=== PATIENT | female | born 1955 | race Caucasian/White ===

== ENCOUNTER 2018-03-26 05:45 | Inpatient (IN) | payer OTHER ==
[~2018-03-26] VITALS: Ht 165.1 cm; Wt 41.7 kg
--- NOTE | 2018-03-26 05:45 | NUR ---
PT HANNA ALS. TAKEN TO BED 10
--- NOTE | 2018-03-26 05:45 | NUR ---
Dr. Wilson evaluating patient at bedside.
[2018-03-26 05:50] VITALS: BP 110/71
--- NOTE | 2018-03-26 05:50 | NUR ---
62/F BIBA FROM HOME FOR SOB X4 HRS. PT STATED SHE STARTED FEELING SOB AT 0200 DESPITE ALBUTEROL INHALER. PT WAS GIVEN ALBUTEROL AND ATROVENT BREATHING TX AND CPAP ON ROUTE. PT ARRIVES SPO2 100% ON BIPAP, PT AOX4, GCS 15, RR 26 EVEN, MODERATELY LABORED WITH ACCESSORY MUSCLE USE. LUNG SOUNDS WHEEZE BL. PT DENIES FEVER, CP OR ANY PAIN. PLACED ON MONITOR, RT AT BEDSIDE, ER MD AT BEDSIDE HX CA (2012), COPD (1/2PPD SMOKER), ASTHMA, RECENT BRONCHITIS AND SINUSITIS
[2018-03-26] MEDS ORDERED: IPRATROPIUM 0.02% 0.5 MG/2.5 ML NEBU INH ONE (05:55)
[2018-03-26] MEDS ORDERED: methylPREDNISolone SS 125 MG in WATER STERILE 2 ML IV ONE (05:55)
[2018-03-26] MEDS ORDERED: ALBUTEROL 0.083% 2.5 MG/3 ML NEBU INH ONE (05:55)
[2018-03-26] MEDS ORDERED: methylPREDNISolone SS 125 MG/2 ML VIAL ONE (06:00)
[2018-03-26 06:20] LABS: BASOPHILS % (AUTO) 0.4 % (0.0-2.0); EOSINOPHILS # (AUTO) 0.1 K/uL (0-0.4); EOSINOPHILS % (AUTO) 1.8 % (0.0-4.0); HEMATOCRIT 43.8 % (36-48); HEMOGLOBIN 14.5 g/dL (12.0-16.0); LYMPHOCYTES # (AUTO) 1.1 K/uL (2.5-16.5); LYMPHOCYTES % (AUTO) 19.3 % (20.5-51.1); MEAN CORPUSCULAR HEMOGLOBIN 31 pg (27-31); MEAN CORPUSCULAR HGB CONC 33 g/dL (33-37); MONOCYTES # (AUTO) 0.4 K/uL (0.8-1.0); MONOCYTES % (AUTO) 7.5 % (1.7-9.3); NEUTROPHILS # (AUTO) 4.2 K/uL (1.8-7.7); PLATELET COUNT (AUTO) 207 K/uL (140-450); RED BLOOD CELL COUNT(AUTO) 4.76 MIL/uL (4.20-5.40); WHITE BLOOD COUNT (AUTO) 5.9 K/uL (4.8-10.8)
[2018-03-26 06:39] LABS: ALBUMIN 4.1 g/dL (3.4-5.0); ANION GAP 9.8 (8-16); CARBON DIOXIDE 30.1 mmol/L (21-32); CREATININE 0.9 mg/dL (0.6-1.3); POTASSIUM 3.9 mmol/L (3.5-5.1); TOTAL BILIRUBIN 0.5 mg/dL (0.0-1.0)
[2018-03-26] MEDS ORDERED: AZITHROMYCIN 1,000 MG in DEXTROSE 5% 500 ML IV ONE (07:15)
[2018-03-26] MEDS ORDERED: NACL 0.9% IV ONE (07:15)
[2018-03-26] MEDS ORDERED: LEVOFLOXACIN 750 MG/D5W PREMIX 150 ML IV ONE (07:15)
--- NOTE | 2018-03-26 07:22 | NUR ---
Pt report given to [facility]. Transfer of care at this time.
--- NOTE | 2018-03-26 07:38 | NUR ---
PT. RESTING COMFORTABLY IN BED, SAFETY PRECAUTIONS IN PLACE, HOB ELEVATED. VSS AT THIS TIME. RR EVEN AND UNLABORED. IV PATENT 10CC SALINE FLUSH NO REDNESS OR SWELLING NOTED AND NO PAIN AT THIS TIME. WILL CONTINUE TO MONITOR.
[2018-03-26] MEDS ORDERED: ALBUTEROL SULFATE/IPRATROPIU 3 ML SOL IH ONE (07:45)
[2018-03-26] MEDS ORDERED: HYDROcodone/APAP 5/325 MG 1 TAB TAB PO PRN (08:00)
[2018-03-26] MEDS ORDERED: ONDANSETRON 4 MG/2 ML VIAL IVP PRN (08:00)
[2018-03-26] MEDS ORDERED: ACETAMINOPHEN 325 MG TAB PO PRN (08:00)
[2018-03-26 08:45] VITALS: BP 111/66
--- NOTE | 2018-03-26 08:45 | NUR ---
RECEIVED BEDSIDE REPORT FROM KENDY ARAYA. PT STABLE, AWAKE, AND ALERT. PT AMBULATES. NO SIGNS OF DISTRESS NOTED. DENIES PAIN. NO REDNESS, SWELLING, OR INFLAMMATION NOTED ON IV SITE. BED IN LOW POSITION. CALL LIGHT WITHIN REACH. SAFETY MEASURES IN PLACE. PLAN OF CARE REVIEWED.
--- NOTE | 2018-03-26 08:45 | NUR ---
Patient will be admitted to care of DR. GARZA. Admited to TELE . Will go to room 111A. Belongings list completed. Report to KENDY SALAZAR.
--- NOTE | 2018-03-26 08:58 | NUR ---
TRANSFERRED PT TO TELE RM 111 A ON 2LPM NC UPON ARIVAL PLACED PT ON BIPAP WITH SETTINGS CHARTED BREATH SOUNDS [PRESENT BILAT PT CARLITOS BIPAP WELL AT THIS TIME DECREASED FI02 TO .28 SPO2 .98 WILL CONTINUE TO MONITOR PT ON BIPAP
--- NOTE | 2018-03-26 09:35 | NUR ---
DR. GARZA AT THE BEDSIDE.
--- NOTE | 2018-03-26 10:40 | NUR ---
REMOVEP PT FROM BIPAP AND PLACED ON 2LPM NC DR PRIETO AWARE PT AWAKE ALERT NO RESP DISTRESS ON 2LPM NC WILL CONTINUE TO MONITOR
[2018-03-26] MEDS: DOCUSATE SODIUM 100 MG GELCAP PO SCH (11:01)
--- NOTE | 2018-03-26 11:17 | NUR ---
ADMINISTERED SCHEDULED MEDICATIONS. PT TOLERATED WELL. NO OTHER NEEDS AT THIS TIME.
--- NOTE | 2018-03-26 12:30 | NUR ---
PAGED DR. GARZA TO REPORT LACTIC ACID.
--- NOTE | 2018-03-26 13:00 | NUR ---
PAGED DR. GARZA TO REPORT LACTIC ACID.
[2018-03-26] MEDS: methylPREDNISolone SS 40 MG/ML VIAL IVP SCH ×2 (13:10→20:35)
--- NOTE | 2018-03-26 13:15 | NUR ---
ADMINISTERED SCHEDULED MEDICATION. PT TOLERATED WELL. NO OTHER NEEDS AT THIS TIME.
--- NOTE | 2018-03-26 13:41 | NUR ---
REPORTED LACTIC ACID 2.[address] GARZA. RECEIVED ORDERS TO REPEAT LACTIC ACID IN 2HRS.
[2018-03-26] MEDS ORDERED: CETI10TA70 PO (15:09)
[2018-03-26] MEDS ORDERED: CHOL50005 PO (15:09)
[2018-03-26] MEDS ORDERED: FLO44 INH (15:09)
[2018-03-26] MEDS ORDERED: FLONAS NS (15:09)
[2018-03-26] MEDS ORDERED: ATRMDI IH (15:09)
[2018-03-26] MEDS ORDERED: ASPI-1718 PO (15:09)
[2018-03-26] MEDS ORDERED: ALBU0.0912 IH (15:09)
[2018-03-26] MEDS ORDERED: CEPH500C16 PO (15:09)
[2018-03-26] MEDS ORDERED: AMLO2.5T PO (15:09)
[2018-03-26] MEDS ORDERED: SODI45SP10 NS (15:09)
[2018-03-26 16:00] VITALS: BP 110/56
--- NOTE | 2018-03-26 16:20 | NUR ---
VITAL SIGNS TAKEN. PT STABLE, AWAKE, AND ALERT. NO SIGNS OF DISTRESS NOTED.
[2018-03-26] MEDS: ALBUTEROL SULFATE/IPRATROPIU 3 ML SOL IH PRN (18:47)
--- NOTE | 2018-03-26 19:27 | NUR ---
ENDORSED PT TO CREDENTIALING MANAGER NURSE FOR CONTINUITY OF CARE. PT STABLE, AWAKE, AND ALERT.
--- NOTE | 2018-03-26 19:28 | NUR ---
RECEIVED FROM AM RN IN BED AWAKE AND ALERT. ABLE TO VERBALIZE SIMPLE NEEDS. CALL LIGHT WITH IN REACH. NO SOB. DENIES PAIN AT THIS TIME. CARE PLANS FOR THE NIGHT DISCUSSED WITH HER. DX. OF COPD EXACERBATION. ROM X 4. AMBULATES WELL TO RESTROOM BY HERSELF PER AM RN. TELEMETRY MONITORING NSR.
[2018-03-26 20:00] VITALS: BP 122/71
[2018-03-26] MEDS ORDERED: ZOLPIDEM 5 MG TAB PO PRN (21:00)
--- NOTE | 2018-03-26 23:02 | NUR ---
BREATHING TREATMENT BEING ADMINISTERED BY RESPIRATORY THERAPIST AT THIS TIME. PT. ABLE TO VERBALIZE SIMPLE NEEDS IN POLISH. CALL LIGHT WITH IN REACH.
[2018-03-27] VITALS: BP 109/64
--- NOTE | 2018-03-27 00:46 | NUR ---
AWAKE AND AMBULATED TO RESTROOM WITH A CANE WELL. STANDBY ASSIST PROVIDED. PT. ABLE TO VERBALIZE NEEDS WELL IN UZBEK. DENIES APIN. TELEMETRY MONITORING.
--- NOTE | 2018-03-27 02:00 | NUR ---
SLEEPING. NO RESTLESSNESS. ON ROOM AIR AND 02 SAT 94%. CALL LIGHT WITH IN REACH. TELEMETRY MONITORING.
--- NOTE | 2018-03-27 02:55 | NUR ---
AWAKE AND REQUESTED FOR ANTI NAUSEA. WILL ADMINISTER REQUESTED. ABLE TO VERBALIZE NEEDS WELL.
[2018-03-27 04:31] VITALS: BP 112/60
--- NOTE | 2018-03-27 04:35 | NUR ---
SLEEPING WELL AT THIS TIME. NO RESTLESSNESS. IN ROOM AIR. TELEMETRY MONITORING.
[2018-03-27] MEDS: methylPREDNISolone SS 40 MG/ML VIAL IVP SCH (04:57)
[2018-03-27] MEDS: ALBUTEROL SULFATE/IPRATROPIU 3 ML SOL IH PRN (06:42)
--- NOTE | 2018-03-27 07:20 | NUR ---
RECEIVED BEDSIDE REPORT FROM KENDY DOYLE. PT STABLE, AWAKE, AND ALERT. NO SIGNS OF DISTRESS NOTED. DENIES PAIN OR SOB. NO REDNESS, SWELLING, OR INFLAMMATION NOTED ON IV SITE. BED IN LOW POSITION. CALL LIGHT WITHIN REACH. PLAN OF CARE REVIEWED.
--- NOTE | 2018-03-27 07:23 | NUR ---
BREATHING TREATMENT REQUESTED DONE. "I FEEL BETTER" . PT. ENDORSED AWAKE AND ALERT. NO COMPLAINTS DONE. TELEMETRY MONITORING. ABLE TO USE CALL LIGHT FOR HELP. PT. USES CANE IN AMBULATING. NOTED STABLE IN HER AMBULATION WITH CANE.
[2018-03-27 07:26] LABS: HEMATOCRIT 38.3 % (36-48); HEMOGLOBIN 12.8 g/dL (12.0-16.0); LYMPHOCYTES # (AUTO) 0.7 K/uL (2.5-16.5); LYMPHOCYTES % (AUTO) 9.2 % (20.5-51.1); MEAN CORPUSCULAR HEMOGLOBIN 31 pg (27-31); MEAN CORPUSCULAR HGB CONC 33 g/dL (33-37); MEAN CORPUSCULAR VOLUME 91.7 fL (80-94); MONOCYTES # (AUTO) 0.3 K/uL (0.8-1.0); MONOCYTES % (AUTO) 3.9 % (1.7-9.3); NEUTROPHILS % (AUTO) 86.9 % (42.2-75.2); PLATELET COUNT (AUTO) 205 K/uL (140-450); RED BLOOD CELL COUNT(AUTO) 4.17 MIL/uL (4.20-5.40); RED CELL DISTRIBUTION WIDTH 12.7 % (11.6-13.7); WHITE BLOOD COUNT (AUTO) 8.1 K/uL (4.8-10.8)
[2018-03-27 07:49] LABS: ALBUMIN 3.5 g/dL (3.4-5.0); CARBON DIOXIDE 27.9 mmol/L (21-32); CREATININE 0.8 mg/dL (0.6-1.3); POTASSIUM 4.9 mmol/L (3.5-5.1); TOTAL BILIRUBIN 0.4 mg/dL (0.0-1.0)
[2018-03-27 08:00] VITALS: BP 111/59
--- NOTE | 2018-03-27 08:30 | NUR ---
DR. GARZA AT THE BEDSIDE.
[2018-03-27] MEDS ORDERED: LEVO500T2 PO (08:32)
[2018-03-27] MEDS ORDERED: NICO1PAT16 TD (08:32)
[2018-03-27] MEDS ORDERED: PRED20TA5 PO (08:32)
--- NOTE | 2018-03-27 08:36 | NUR ---
PATIENT HAS BEEN SCREENED AND CATEGORIZED HIGH NUTRITION RISK. PATIENT WILL BE SEEN WITHIN 1-2 DAYS OF ADMISSION. 03/26/18-03/27/[address]
[2018-03-27] MEDS ORDERED: LEVOFLOXACIN 500 MG TAB PO SCH (09:00)
[2018-03-27] MEDS ORDERED: AZITHROMYCIN 250 MG TAB PO SCH (09:00)
[2018-03-27] MEDS: DOCUSATE SODIUM 100 MG GELCAP PO SCH (09:02)
--- NOTE | 2018-03-27 09:03 | NUR ---
ADMINISTERED SCHEDULED MEDICATIONS. PT TOLERATED WELL. NO OTHER NEEDS AT THIS TIME.
--- NOTE | 2018-03-27 11:23 | NUR ---
PT IN STABLE CONDITION. D/C INSTRUCTIONS AND PRESCRIPTION GIVEN. PT VERBALIZED UNDERSTANDING. QUESTIONS AND CONCERNS WERE ANSWERED. DISCONTINUED IV, CATHETER TIP INTACT, BLEEDING CONTROLLED. PT AMBULATED WITH CANE TO THE WHEELCHAIR. ESCORTED PT TO THE LOBBY.
--- NOTE | 2018-03-30 09:23 | NUR ---
CALLED THE [facility] TO MAKE A FOLLOW UP APPOINTMENT. I SPOKE WITH JUVE, AND HE SAID THE PATIENT HAS AN APPOINTMENT TODAY WITH THE PA, CINDA VELÁSQUEZ, AT 2:40P.M. PHONE [phone]
== END 2018-03-27 11:23 | disposition home or self-care (01) | DRG 720 ==
LOC: MED 05:45 → MTU 08:00
PROVIDERS: ADMIT Hospitalist; ATTEND Hospitalist
PROC: 5A09357 Assistance with Respiratory Ventilation, Less than 24 Consecutive Hours, Continuous Positive Airway Pressure (ICD-10-PCS; principal; 2018-03-26)
DX: A41.9 Sepsis, unspecified organism (principal); J96.01 Acute respiratory failure with hypoxia; J44.1 Chronic obstructive pulmonary disease with (acute) exacerbation; I10 Essential (primary) hypertension; J32.9 Chronic sinusitis, unspecified; B96.89 Other specified bacterial agents as the cause of diseases classified elsewhere; J30.9 Allergic rhinitis, unspecified; Z90.49 Acquired absence of other specified parts of digestive tract; Z90.710 Acquired absence of both cervix and uterus; Z88.4 Allergy status to anesthetic agent; Z88.5 Allergy status to narcotic agent; Z88.0 Allergy status to penicillin; Z88.2 Allergy status to sulfonamides; Z88.8 Allergy status to other drugs, medicaments and biological substances; Z72.0 Tobacco use
CPT/HCPCS: 36415; 36600; 71045; 80053; 82803; 83605; 83880; 85025; 86140; 87040; 87081; 87205; 94640; 94660; 96365; 96375; 99291; J0456; J1644; J1956; J2405; J2920; J2930; J7030; J7060; J7613; J7620; J7644; Q0092

== ENCOUNTER 2018-05-22 11:02 | Emergency (ER) | payer OTHER ==
[~2018-05-22] VITALS: Ht 165.1 cm; Wt 41.5 kg
[~2018-05-22 11:02] MED LIST: ALBU0.0912 IH; AMLO2.5T PO; ASPI-1718 PO; ATRMDI IH; CETI10TA70 PO; CHOL50005 PO; FLO44 INH; FLONAS NS; LEVO500T2 PO; NICO1PAT16 TD; PRED20TA5 PO; SODI45SP10 NS
[2018-05-22 11:15] VITALS: BP 138/69
--- NOTE | 2018-05-22 11:20 | NUR ---
Patient ambulated to bed 7. RN evaluating patient at bedside.
[2018-05-22] MEDS ORDERED: ALBUTEROL 0.083% 2.5 MG/3 ML NEBU INH ONE (12:15)
[2018-05-22] MEDS ORDERED: hydrOXYzine HCL 25 MG TAB PO ONE (12:15)
--- NOTE | 2018-05-22 12:33 | NUR ---
Breathing treatment administered at bedside by respiratory therapist.
[2018-05-22] MEDS ORDERED: NACL 0.9% 1,000 ML IV SCH (12:36)
--- NOTE | 2018-05-22 12:59 | NUR ---
PT PLACED ON CHECK AIRMAN
--- NOTE | 2018-05-22 13:13 | NUR ---
PT REFUSED ABG STATED SHE DOES NOT LIKE IT. INFORMED
[2018-05-22 14:02] LABS: BASOPHILS % (AUTO) 0.5 % (0.0-2.0); EOSINOPHILS # (AUTO) 0.2 K/uL (0-0.4); EOSINOPHILS % (AUTO) 2.8 % (0.0-4.0); HEMOGLOBIN 13.9 g/dL (12.0-16.0); LYMPHOCYTES # (AUTO) 1.4 K/uL (2.5-16.5); LYMPHOCYTES % (AUTO) 23.1 % (20.5-51.1); MEAN CORPUSCULAR HEMOGLOBIN 31 pg (27-31); MEAN CORPUSCULAR HGB CONC 34 g/dL (33-37); MEAN CORPUSCULAR VOLUME 90.8 fL (80-94); MONOCYTES # (AUTO) 0.5 K/uL (0.8-1.0); MONOCYTES % (AUTO) 8.3 % (1.7-9.3); NEUTROPHILS % (AUTO) 65.3 % (42.2-75.2); PLATELET COUNT (AUTO) 245 K/uL (140-450); RED BLOOD CELL COUNT(AUTO) 4.51 MIL/uL (4.20-5.40); RED CELL DISTRIBUTION WIDTH 13.7 % (11.6-13.7); WHITE BLOOD COUNT (AUTO) 6.1 K/uL (4.8-10.8)
--- NOTE | 2018-05-22 14:04 | NUR ---
GAVE PT A URINE CUP
[2018-05-22 14:13] LABS: ANION GAP 13.9 (8-16); CARBON DIOXIDE 28.7 mmol/L (21-32); CREATININE 0.7 mg/dL (0.6-1.3); POTASSIUM 3.6 mmol/L (3.5-5.1)
[2018-05-22 14:27] LABS: ALBUMIN 4.2 g/dL (3.4-5.0); PROTHROMBIN TIME 10.4 secs (10.8-13.4); TOTAL BILIRUBIN 0.7 mg/dL (0.0-1.0)
[2018-05-22 14:54] LABS: D-DIMER < 100 ng/ml (0-400)
[2018-05-22 15:39] VITALS: BP 130/72
--- NOTE | 2018-05-22 15:39 | NUR ---
IV removed, catheter intact and site benign. Applied folded 4x4 gauze and tape to stop bleeding.
--- NOTE | 2018-05-22 15:39 | NUR ---
Patient discharged with v/s stable. Written and verbal after care instructions given and explained. Patient verbalized understanding. Ambulatory with steady gait. All questions addressed prior to discharge. Advised to follow up with PMD.
[2018-05-22 15:43] LABS: APPEARANCE,URINE CLEAR (CLEAR); BILIRUBIN,URINE NEGATIVE (NEGATIVE); COLOR,URINE YELLOW (YELLOW); LEUKOCYTE ESTERASE ,URINE NEGATIVE (NEGATIVE); NITRITE, URINE NEGATIVE (NEGATIVE); UGLUCOSE NEGATIVE (NEGATIVE)
[2018-05-22 15:45] LABS: BLOOD, URINE NEGATIVE (NEGATIVE)
== END 2018-05-22 15:39 | disposition home or self-care (01) ==
LOC: MED 11:02
DX: J44.1 Chronic obstructive pulmonary disease with (acute) exacerbation (principal); R07.89 Other chest pain; F17.210 Nicotine dependence, cigarettes, uncomplicated; I25.2 Old myocardial infarction; I10 Essential (primary) hypertension; Z79.82 Long term (current) use of aspirin; Z79.899 Other long term (current) drug therapy; Z79.2 Long term (current) use of antibiotics; Z88.0 Allergy status to penicillin; Z88.1 Allergy status to other antibiotic agents; Z88.2 Allergy status to sulfonamides; Z88.5 Allergy status to narcotic agent; Z88.8 Allergy status to other drugs, medicaments and biological substances
CPT/HCPCS: 36415; 71250; 80053; 81003; 81025; 83605; 83735; 83880; 84484; 85025; 85379; 85610; 87040; 87086; 93005; 94640; 99284; J7030; J7613

== ENCOUNTER 2021-04-21 07:42 | Inpatient (IN) | payer OTHER, SELFPAY ==
[~2021-04-21] VITALS: Ht 162.6 cm; Wt 49.9 kg
[~2021-04-21 07:42] MED LIST changes: -ASPI-1718 PO; +ASPI-1822 PO
[2021-04-21] MEDS ORDERED: methylPREDNISolone SS 80 MG in WATER STERILE 1 ML IV ONE (07:45)
[2021-04-21] MEDS ORDERED: ALBUTEROL SULFATE/IPRATROPIU 3 ML SOL IH ONE ×2 (07:45→13:23)
[2021-04-21] MEDS ORDERED: NACL 0.9% 1,000 ML IV ONE (07:45)
[2021-04-21 07:46] VITALS: BP 123/71
--- NOTE | 2021-04-21 07:46 | NUR ---
BIBA to bed 01.
[2021-04-21] MEDS ORDERED: WATER STERILE 10 ML MC ONE (07:49)
[2021-04-21] MEDS ORDERED: methylPREDNISolone SS 40 MG/ML VIAL ONE (07:49)
--- NOTE | 2021-04-21 08:00 | NUR ---
66/F BIBA FROM HOME WITH C/O SOB. PER EMS PATIENT WAS D/C FROM [facility] 4 DAYS AGO D/T COPD EXACERBATION, STATES SHE WOKE UP TODAY WITH SOB. EMS STATES PATIENTS SPO2 78% ON SCENE ON ROOM AIR. EMS ATTEMPTED TO PLACE PATIENT ON CPAP STATING PATIENT WAS NOT TOLERATING, REPORTS PT RECEIVED TWO ALBUTEROL TX AND ONE ATROVENT TREATMENT. PT PLACED ONTO AUTOMATIC MAINTAINER; TACHYPNEA @ HR 24, BILATERAL WHEEZES NOTED, PT NOTED WITH DRY COUGH EPISODES AND SPEAKING WITH 1-2 WORDED ANSWERS. BED LOCKED IN LOWEST POSITION, SIDE RAILS X 2. RT AND ERMD AT BEDSIDE. MEDHX: COPD, DEGENERATIVE DISC DISEASE, HX OF ME (2013), ASTHMA ALLERGIES: PENICILLINS, CODEINE, BACTRIM, CARBAMAZEPINE SURGHX: LYMPH NODE REMOVAL ON RIGHT SIDE
--- NOTE | 2021-04-21 08:05 | NUR ---
RT at bedside for high flow application; Pt on 25L @ 60% FiO2
--- NOTE | 2021-04-21 08:08 | NUR ---
RT at bedside for neb tx
--- NOTE | 2021-04-21 08:28 | NUR ---
Lab at bedside
[2021-04-21 08:43] LABS: BASOPHILS % (AUTO) 0.1 % (0.0-2.0); EOSINOPHILS % (AUTO) 0.2 % (0.0-4.0); HEMATOCRIT 34.7 % (36-48); HEMOGLOBIN 11.6 g/dL (12.0-16.0); LYMPHOCYTES # (AUTO) 2.5 K/uL (2.5-16.5); LYMPHOCYTES % (AUTO) 29.8 % (20.5-51.1); MEAN CORPUSCULAR HEMOGLOBIN 31 pg (27-31); MEAN CORPUSCULAR HGB CONC 33 g/dL (33-37); MEAN CORPUSCULAR VOLUME 93.8 fL (80-94); MONOCYTES # (AUTO) 0.9 K/uL (0.8-1.0); NEUTROPHILS % (AUTO) 58.9 % (42.2-75.2); PLATELET COUNT (AUTO) 216 K/uL (140-450); RED CELL DISTRIBUTION WIDTH 13.6 % (11.6-13.7); WHITE BLOOD COUNT (AUTO) 8.5 K/uL (4.8-10.8)
[2021-04-21 08:56] LABS: ALBUMIN 2.9 g/dL (3.4-5.0); ANION GAP 5.4 (8-16); CARBON DIOXIDE 34.8 mmol/L (21-32); CREATININE 0.6 mg/dL (0.6-1.3); POTASSIUM 4.2 mmol/L (3.5-5.1); TOTAL BILIRUBIN 0.3 mg/dL (0.0-1.0)
[2021-04-21] MEDS ORDERED: POTASSIUM CHLORIDE 10 MEQ TABER PO PRN (09:15)
[2021-04-21] MEDS ORDERED: HYDROcodone/APAP 7.5/325 MG 1 TAB PO PRN (09:15)
[2021-04-21] MEDS ORDERED: ACETAMINOPHEN 325 MG TAB PO PRN (09:15)
[2021-04-21] MEDS ORDERED: ZOLPIDEM 5 MG TAB PO PRN (09:15)
[2021-04-21] MEDS ORDERED: DOCUSATE SODIUM 100 MG GELCAP PO PRN (09:15)
[2021-04-21] MEDS ORDERED: ALBUTEROL SULFATE/IPRATROPIU 3 ML SOL IH PRN (09:20)
[2021-04-21] MEDS: guaiFENesin DM 200/20 MG-10 ML 10 ML UDC PO PRN (09:40)
--- NOTE | 2021-04-21 09:40 | NUR ---
RT at bedside with pt
[2021-04-21] MEDS ORDERED: METH4TAB27 PO (09:45)
[2021-04-21] MEDS ORDERED: ATRMDI IH (09:45)
[2021-04-21] MEDS ORDERED: CHOL200072 PO (09:45)
[2021-04-21] MEDS ORDERED: ALBU0.0912 INH (09:45)
[2021-04-21] MEDS ORDERED: NITR0.4T2 SL (09:45)
[2021-04-21] MEDS ORDERED: ROB PO (09:45)
[2021-04-21] MEDS ORDERED: FAMO-90 PO (09:45)
[2021-04-21] MEDS ORDERED: FLUT1BLS3 IH (09:45)
[2021-04-21 09:46] LABS: CHOL/HDL RATIO 2.7 (1-4.5); FREE T4 (FREE THYROXINE) 1.03 ng/dL (0.76-1.46); MAGNESIUM 2.1 mg/dL (1.8-2.4); PHOSPHORUS 3.3 mg/dL (2.5-4.9)
--- NOTE | 2021-04-21 09:55 | NUR ---
Per RT, place patient on 15L by NRB for transport to Telemetry floor.
[2021-04-21 10:00] VITALS: BP 110/70
--- NOTE | 2021-04-21 10:00 | NUR ---
Patient will be admitted to care of Dr. Walker. Admited to Telemetry. Will go to room 119B. Belongings list completed. Report to KENDY Powell.
--- NOTE | 2021-04-21 10:00 | NUR ---
REPORT RECEIVED FROM ER NURSE. THIS PT. TRANSFERRING FROM ER. PT. ALERT,ORIENTED X4. CC SOB. DX COPD, HYPOXIA. ON HIGH FLOW OXYGEN 30L. PER REPORT. AWAITING FOR PT. ARRIVAL ON UNIT. WILL CONTINUE FOLLOW UP.
[2021-04-21] MEDS: NACL 0.9% 1,000 ML IV SCH (10:58)
[2021-04-21 11:47] LABS: PROTHROMBIN TIME 11.2 secs (10.8-13.4)
[2021-04-21 12:00] VITALS: BP 109/68
--- NOTE | 2021-04-21 12:41 | NUR ---
PATIENT ARRIVED ON UNIT @1005. VIA GURNEY. RECEIVED PT. TO THE BED. PROVIDE COMFORT AND APPLIED ALL SAFETY PRECAUTIONS. PT. ALERT AND ORIENTED. VERBALY RESPONSIVE. ABLE TO MAKE HER NEEDS KNOWN. EDUCATED TOTHE PT. AND REINFORCED TO USE CALL LIGHT FOR ANY HELP. VERBALIZED UNDERSTANDING. ADMISSION ASSESSMENT DONE.SKIN IS INTACKT, WARM TO TOUCH. V/S WNL. WILL CONTINUE TO MONITOR THE PT.
[2021-04-21] MEDS ORDERED: ALBUTEROL SULFATE/IPRATROPIU 3 ML SOL IH SCH (13:00)
[2021-04-21] MEDS: methylPREDNISolone SS 40 MG/ML VIAL IVP SCH ×2 (13:28→21:02)
[2021-04-21] MEDS: LEVOFLOXACIN 750 MG/D5W PREMIX 150 ML IV SCH (14:51)
[2021-04-21 16:00] VITALS: BP 110/74
--- NOTE | 2021-04-21 16:30 | NUR ---
PT'S PIV ACCESS WAS OUT . WHILE USING BEDSIDE COMMODE. REINSERTED PERIPHERAL IV ON LFA 22 G. PT. TOLERATEDE WELL. IV FLUID RESTARTED ORDER. PT. STABLE. RESP. NORMAL. COMFORTABLY LYING IN THE BED AT PRESENT. CONT. MONITORING THE PT.
--- NOTE | 2021-04-21 17:36 | NUR ---
ROUNDS. PT. COMFORTABLY SLEEPING IN THE BED. WITHOUT ANY ACUTE S/SX OF DISTRESS NOTED. ALL SAFETY MEASURES IN PLACE. WILL CONTINUE TO MONITOR THE PT.
--- NOTE | 2021-04-21 19:24 | NUR ---
ENDORSED REPORT TO PM SHIFT RN FOR CONTINUITY OF CARE. PT. STABLE
[2021-04-21 20:00] VITALS: BP 147/74
[2021-04-21] MEDS ORDERED: IPRATROPIUM 0.02% 0.5 MG/2.5 ML NEBU INH PRN (21:15)
[2021-04-21] MEDS ORDERED: LORazepam 1 MG TAB PO PRN (21:30)
--- NOTE | 2021-04-21 21:31 | NUR ---
PT SAID SHE CAN'T BREATH - O2 SAT 98 % - REFER TO RT FOR FURTHER ASSESSMENT - PER RT SUGGESTION ATIVAN - SEEMS PT ANXIOUS . - WILL INFORM DR. GEORGE . Addendum: 04/21/21 at 2138 by Joanne Gore RN PER DR. GEORGE - REFER PT TO MANAGER MEDICAL - PAGED DR. GARZA - DR. GARZA CALL BACK - MADE T.O AND WILL CARRY OUT .
--- NOTE | 2021-04-21 21:41 | NUR ---
PER PHARMACIST - PT IF SHE HAS ALLERGY TO ATIVAN BEFORE PHARMACIST VERIFY IT - BUT WHEN I COME TO PT.'S ROOM PT IS SLEEPING - ON O2 SAT MONITOR , O2 SA 100 % . Addendum: 04/21/21 at 2143 by Joanne Gore RN THE WORK IN THE ABOVE NURSE'S NOTE IS TYPOGRAPHICALLY ERROR , INSTEAD OF ASK - ASHLEIGH
[2021-04-21] MEDS: IPRATROPIUM 0.02% 0.5 MG/2.5 ML NEBU INH SCH (23:00)
[2021-04-22] VITALS: BP 150/72
--- NOTE | 2021-04-22 | NUR ---
ROUNDS , PT DENIES ALLERGY TO ATIVAN , REQUESTING BREATHING TREATMENT - REFER TO RT , O2 SAT 97 5 , ON TELE MONITOR .
--- NOTE | 2021-04-22 00:45 | NUR ---
JUST HAD BREATHING TREATMENT , ASSESSED BY RT , BP 150/70 , RR 24 , O2 SAT 97 % , HR 111 - SHOWING S/SX OF AGITATION - WILL MEDICATE . CALL LIGHT WITHIN REACH , ON TELE MONITOR
--- NOTE | 2021-04-22 02:05 | NUR ---
ROUNDS , SLEEPING , O2 SAT 100 % , ON TELE MONITOR 92 , CALL LIGHT WITHIN REACH
[2021-04-22 04:00] VITALS: BP 128/82
--- NOTE | 2021-04-22 04:00 | NUR ---
ROUNDS , O2 SAT WNL . CALL LIGHT WITHIN REACH , AWAKE
[2021-04-22] MEDS: IPRATROPIUM 0.02% 0.5 MG/2.5 ML NEBU INH SCH ×2 (04:04→06:53)
[2021-04-22] MEDS: NACL 0.9% 1,000 ML IV SCH ×3 (04:40→21:37)
[2021-04-22] MEDS: methylPREDNISolone SS 40 MG/ML VIAL IVP SCH ×3 (05:04→20:34)
[2021-04-22 05:25] LABS: BASOPHILS % (AUTO) 0.2 % (0.0-2.0); HEMATOCRIT 35.2 % (36-48); HEMOGLOBIN 11.8 g/dL (12.0-16.0); LYMPHOCYTES # (AUTO) 0.7 K/uL (2.5-16.5); LYMPHOCYTES % (AUTO) 8.2 % (20.5-51.1); MEAN CORPUSCULAR HEMOGLOBIN 31 pg (27-31); MEAN CORPUSCULAR HGB CONC 34 g/dL (33-37); MEAN CORPUSCULAR VOLUME 93.1 fL (80-94); MONOCYTES # (AUTO) 0.6 K/uL (0.8-1.0); NEUTROPHILS # (AUTO) 6.8 K/uL (1.8-7.7); NEUTROPHILS % (AUTO) 84.6 % (42.2-75.2); PLATELET COUNT (AUTO) 207 K/uL (140-450); RED BLOOD CELL COUNT(AUTO) 3.79 MIL/uL (4.20-5.40); RED CELL DISTRIBUTION WIDTH 13.1 % (11.6-13.7)
[2021-04-22 05:37] LABS: ANION GAP 8.5 (8-16); CARBON DIOXIDE 35.7 mmol/L (21-32); CREATININE 0.5 mg/dL (0.6-1.3); POTASSIUM 5.2 mmol/L (3.5-5.1)
--- NOTE | 2021-04-22 06:00 | NUR ---
AWAKE , O2 SAT 97 % ON HI FLOW OXYGEN PER NASAL CANULLA - WILL CONT. TO MONITOR
--- NOTE | 2021-04-22 07:00 | NUR ---
PT'S SON CALL JUST TO LET KNOW IF HIS MOTHER BEEN OK .
--- NOTE | 2021-04-22 07:28 | NUR ---
RECEIVED REPORT FROM DATABASE SUPPORT NURSE FOR CONTINUITY OF CARE.
--- NOTE | 2021-04-22 07:28 | NUR ---
AWAKE , ON O2 SAT MONITORING - O2 SAT WNL . ON TELE MONITOR . - ENDORSED - PT -STABLE .
[2021-04-22 08:00] VITALS: BP 155/68
[2021-04-22 08:07] LABS: T4 (THYROXINE) 7.8 ug/dL (4.5-12.0)
--- NOTE | 2021-04-22 08:36 | NUR ---
I WAS TOLD THE LEAD WAS OFF WHEN I GO TO THE ROOM PLANT PHYSIOLOGY TEACHER IS THEIR AND NOTED RESIDENT NOT BREATHING RIGHT WE PUT BACK TO BED HEAD OF BED ELEVATED AND CALLED RT. PATIENT ONLY OPEN HER EYES WHEN CALLED. RT ADJUSTED O2 AND PUT NEW O2 SAT ON RIGHT EAR LOBE. SATURATION AT THIS TIME 100% AT 25% HYFLO.
--- NOTE | 2021-04-22 08:43 | NUR ---
DR. GEORGE AT BED SIDE WITH RT ORDER ABG AND CT WITH OUT CONTRAST.
[2021-04-22] MEDS ORDERED: PANTOPRAZOLE 40 MG TABEC PO SCH (09:00)
--- NOTE | 2021-04-22 09:13 | NUR ---
PT STILL WITH LABORED BREATHING RT AT BED SIDE AND PUT PT ON BI PAP.
--- NOTE | 2021-04-22 09:34 | NUR ---
CALLED DR. SPENCER RICHMOND AT [facility] [phone] TO REVIEW ABG SAMPLE REPORT MAY/ TO PAGE FORMENTIONED MD CALL BACK NUMBER AND PATIENT INFORMATION GIVEN
--- NOTE | 2021-04-22 09:38 | NUR ---
CALL BACK FROM DR. SPENCER RICHMOND REVIEWED PATIENT STATUS, LOC, CURRENT HIGH FLOW NASAL CANNULA SETTINGS PRIOR TO ABG, ABG SAMPLE REPORT, CHANGE TO BIPAP TO MASK WITH SETTINGS OF 14/7 R14 30%, CURRENT MEDICATIONS OF: ATROVENT Q4; SOLU-MEDROL 40mg IVP Q8, CULVERT INSTALLER TO OBTAIN FOLLOW UP ABG WITHIN 1-2 HOURS TORBO: CHANGE HHN THERAPY TO DUONEB Q4 AND Q2 PRN FOR SOB/WHEEZE; OXYGEN SATURATION 88%-92%; ABG AFTER 1-2 HOURS ON BIPAP (CALL MD WITH RESULTS); NOCTURNAL BIPAP AND DAYS NEEDED
[2021-04-22] MEDS: ASPIRIN 81 MG TAB.CHEW PO SCH (09:59)
[2021-04-22] MEDS: NICOTINE TRANSD SYS 14 MG/24 HR PATCH TD SCH (09:59)
[2021-04-22] MEDS: amLODIPine 5 MG TAB PO SCH (10:00)
--- NOTE | 2021-04-22 10:05 | NUR ---
CALLED DR. SPENCER RICHMOND AT [facility] [phone] FOR RESPIRATORY DRUG CLARIFICATION YEN/EXCHANGE TO PAGE FOREMENTIONED MD CALL NUMBER AND PATIENT INFO GIVEN
--- NOTE | 2021-04-22 10:10 | NUR ---
GIVEN HER MEDICATION TOLERATED WELL. O2 SAT AT 92-94 % AT BI PAP.
--- NOTE | 2021-04-22 10:12 | NUR ---
CALL BACK FROM DR. SPENCER RICHMOND REVIEWED KNOWN ADVERSE/ALLERGIC REACTIONS TO SALMETEROL WHICH IS A MAIN COMPONENT IN ALBUTEROL TORBO: OKAY TO ISSUE DUONEB OR ALBUTEROL; PATIENT RECEIVING HOME MED OF TRELE WHICH HAS SALMETEROL COMPONENT
--- NOTE | 2021-04-22 10:23 | NUR ---
PATIENT HAS BEEN SCREENED AND CATEGORIZED MODERATE NUTRITION RISK. PATIENT WILL BE SEEN WITHIN 3-5 DAYS OF ADMISSION. ANA M [address]
[2021-04-22] MEDS ORDERED: ALBUTEROL SULFATE/IPRATROPIU 3 ML SOL IH SCH (10:25)
[2021-04-22] MEDS: ALBUTEROL SULFATE/IPRATROPIU 3 ML SOL IH SCH ×3 (11:09→19:37)
[2021-04-22 12:00] VITALS: BP 116/72
--- NOTE | 2021-04-22 12:21 | NUR ---
DR. RICHMOND GUIDE ALPINE SEEN PT AND INFORM THAT SHE NEED BI PAP MACHINE AT NIGHT AND MY USE NASAL CANULA AFTER FEW HOURS. CHARGE NURSE INFORM HIM THAT PT JUST STARTED ON BI PAP THIS MORNING.
[2021-04-22] MEDS ORDERED: COMMUNICATION ORDER MC PRN (12:45)
--- NOTE | 2021-04-22 13:00 | NUR ---
PATIENT WHEELED TO RADIOLOGY FOR HER CT PROCEDURE.
--- NOTE | 2021-04-22 13:30 | NUR ---
PATIENT BACK TO HER ROOM ON STABLE CONDITION PER RT PUT PATIENT ON NASAL CANULA AT 3 L/MIN O2 SAT AT 90 TO 93%. ASSISTED TO BED SIDE COMMODE NOTED WITH EXACERBATION WITH ACTIVITY PUT BACK TO BED RIGHT AWAY AND PUT HEAD OF BED ELEVATED REFUSED TO EAT.
[2021-04-22] MEDS ORDERED: SODIUM ZIRCONIUM CYCLOSILICATE 10 GM POWD.PACK PO SCH (14:30)
--- NOTE | 2021-04-22 15:27 | NUR ---
PATIENT ASLEEP AT THIS TIME WITH CALL LIGHT WITH IN EASY REACH AFTER I GAVE MEDS TO LOWER POTASSIUM.
[2021-04-22 16:34] VITALS: BP 126/69
--- NOTE | 2021-04-22 18:51 | NUR ---
PATIENT NOTED WITH OXYGEN DESATURATION WITH THE CHARGE NURSE AND SHE CALLED RT AND PATIENT PUT BACK ON BI PAP ON TOP OF 3LNASAL CANULA SATURATION AT THIS TIME OF 100%. ABLE TO RESPOND BUT NOTED WITH WEAKNESS.
--- NOTE | 2021-04-22 19:27 | NUR ---
GAVE REPORT TO DIGITAL FIELD SERVICE TECHNICIAN NURSE FOR CONTINUITY OF CARE. PATIENT ON BI PAP AND RT AT BED SIDE.
--- NOTE | 2021-04-22 19:30 | NUR ---
RECEIVED REPORT FROM MORNING NURSE. PATIENT RESTING ON BED, CONNECTED TO BIPAP WITH SETTING AT RR 12 , FI02 40%,O2SAT AT 88% NOW. RT AT BEDSIDE. PATIENT IS LETHARGIC, OPENS EYES TO NAME, PER MORNING SHIFT PATIENT HAVE BEEN LIKE THIS SINCE THIS AFTERNOON.WILL CONTINUE TO MONITOR PATIENT.
[2021-04-22 20:00] VITALS: BP 122/96
--- NOTE | 2021-04-22 21:20 | NUR ---
CALLED CUSTOMER SUPPORT COORDINATOR TO CHECK ON PATIENT. BIPAP MACHINE O2 SAT AT 86%. PATIENT LETHARGIC AND NO RESPONSE TO PAIN. OPENS EYES TO NAME BUT WOULD IMMEDIATELY CLOSE EYES AGAIN. RT ADJUSTED BIPAP MACHINE AND BLOOD DRAWN FOR ABG. ER DOCTOR MADE AWARE BY CUSTOMER SUPPORT COORDINATOR.VS TAKEN AND RECORDED.WILL CONTINUE TO MONITOR PATIENT.
--- NOTE | 2021-04-22 23:06 | NUR ---
2199; CALLED DAUGHTER TO GIVE UPDATE, NO ANSWER, VOICEMAIL LEFT.2209; ER DOCTOR ARRIVED. 2211; ETOMIDATE 20 MG GIVEN IV PUSH ORDERED, FLUSH WITH 10 ML NS. 3: ROCUNORIUM 40 MG GIVEN IV PUSH ORDERED AND FLUSH WITH 10 ML NS. 2213: DR GASPAR INTUBATED PATIENT WITH 7.5 ETT AT LEVEL 20, CONNECTED PATIENT OT VENT WITH THE FF SETTING FI02 70%, TV 400, RR 20 AND PEEP 5. 2 RT'S IN ROOM FIXING VENT, DR LEFT THE ROOM AFTER INSERTION. NOTICED ON THE MONITOR PATIENT BP DROPPED TO 44/36 AT 2218, NO PULSE, CODE BLUE INITIATED AND STARTED CPR AT 2219.. ROSC AT 2225 AFTER 2 DOSES OF EPI, HR 149, BP 118/97, BS CHECK , 125. 2229:XRAY DONE TO CONFIRM ETT PLACEMENT AND ADJUSTMENT DONE NEEDED BY ER . 2237: CALLED DAUGHTER AGAIN BUT NO ANSWER, LEFT VOICEMAIL TO CALL BACK. CALLED DR LAUREANO AT 2250 TO GET ORDERS. PATIENT WILL BE TRANSFERRED TO ICU, AWAITING FOR SENIOR ADMINISTRATIVE ASSISTANT RN. ORDERS RECEIVED FROM DR LAUREANO AND ENTERED BY LION HUNTER. CALLED DR. SCOTT FOR PULMO CONSULT ORDERED. TALKED TO SENIOR ADMINISTRATIVE ASSISTANT DR CAIN AND GOT AN ORDER FOR STAT ABG. 2320; RECEIVED CALL FROM DAUGHTER, UPDATED ON PATIENT CONDITION. ALTERNATE NUMBER TO CONTACT, , - ROXANNE.WILL CONTINUE TO MONITOR PATIENT.
[2021-04-22 23:22] LABS: BASOPHILS # (AUTO) 0.1 K/uL (0.00-0.22); BASOPHILS % (AUTO) 0.5 % (0.0-2.0); HEMATOCRIT 39.4 % (36-48); HEMOGLOBIN 12.8 g/dL (12.0-16.0); LYMPHOCYTES # (AUTO) 0.4 K/uL (2.5-16.5); LYMPHOCYTES % (AUTO) 3.3 % (20.5-51.1); MEAN CORPUSCULAR HEMOGLOBIN 31 pg (27-31); MEAN CORPUSCULAR HGB CONC 33 g/dL (33-37); MEAN CORPUSCULAR VOLUME 94.6 fL (80-94); MONOCYTES # (AUTO) 0.8 K/uL (0.8-1.0); MONOCYTES % (AUTO) 6.7 % (1.7-9.3); NEUTROPHILS # (AUTO) 11.2 K/uL (1.8-7.7); NEUTROPHILS % (AUTO) 89.5 % (42.2-75.2); PLATELET COUNT (AUTO) 254 K/uL (140-450); RED BLOOD CELL COUNT(AUTO) 4.16 MIL/uL (4.20-5.40); WHITE BLOOD COUNT (AUTO) 12.5 K/uL (4.8-10.8)
[2021-04-22 23:31] LABS: ANION GAP 10.3 (8-16); CARBON DIOXIDE 35.6 mmol/L (21-32); CREATININE 0.8 mg/dL (0.6-1.3); POTASSIUM 4.9 mmol/L (3.5-5.1)
[2021-04-22] MEDS ORDERED: LEVOFLOXACIN 500 MG/D5W PREMIX 100 ML IV SCH (23:45)
[2021-04-22] MEDS ORDERED: DEXMEDETOMIDINE HCL 100 MCG/ML 2 ML VIAL IV ONE (23:45)
[2021-04-22] MEDS: DEXMEDETOMIDINE HCL 400 MCG in NACL 0.9% 96 ML IV PRN (23:56)
[2021-04-23] VITALS (37 sets, daily range): BP systolic 77–133; BP diastolic 57–82
--- NOTE | 2021-04-23 00:14 | NUR ---
REPORT GIVEN TO HOME HEALTH CLINICIANONEL. VS TAKEN AND RECORDED. PATIENT STILL IN ROOM. ICU NURSES IN ROOM AND AWAITING HELP FROM RT TO TRANSFER PATIENT TO ICU.PATIENT STARTING TO WAKE UP, SEDATION DRIP STARTED BY HOME HEALTH CLINICIAN. PATIENT STABLE AT THIS TIME. CONTINUITY OF CARE ENDORSED TO HOME HEALTH CLINICIAN.
--- NOTE | 2021-04-23 00:30 | NUR ---
REPORT RECEIVED FROM [facility] HEADMASTER/MISTRESS NURSE FOR TRANSFER OF CARE. PT TRANSFERRED VIA GURNEY TO ICU BED 5. VSS AT THIS TIME. ETT TO VENT SIZE 7.5 AND 20 @ THE TEETH. FIO2 @70%, VT @400, PEEP @5, AND RATE @20. INITIAL ASSESSMENT COMPLETED. RT AT BEDSIDE FOR ABG. SAFETY MEASURES IN PLACE. BED IN LOWEST POSITION WITH CALL LIGHT IN REACH. WILL CONTINUE TO MONITOR.
--- NOTE | 2021-04-23 01:00 | NUR ---
MD LAUREANO MADE AWARE OF REPEATED LEVOFLOXACIN ORDER. NEW ORDERS RECEIVED TO DC THE 500 MG LEVOFLOXACIN AND CONTINUE THE 750MG ORDER. ALSO RECEIVED ORDERS FOR LAKE AND OGT PLACEMENT. LAKE PUT IN PLACE. TOLERATED WELL. OGT PUT IN PLACE AND VERIFIED PLACEMENT VIA AUSCULTATION. TOLERATED WELL. WILL CONTINUE TO MONITOR.
[2021-04-23] MEDS ORDERED: NOREPINEPHRINE 4 MG/4 ML VIAL IV ONE (01:52)
[2021-04-23] MEDS: NOREPINEPHRINE 4 MG in DEXTROSE 5% 250 ML IV PRN ×2 (02:00→09:00)
--- NOTE | 2021-04-23 02:57 | NUR ---
PT OBSERVED. CHEST RISE AND FALL PRESENT. VSS. NO S/S OF RESP DISTRESS. PT TURNED AND REPOSITIONED. WILL CONTINUE TO MONITOR.
[2021-04-23] MEDS: methylPREDNISolone SS 40 MG/ML VIAL IVP SCH ×3 (04:43→20:03)
--- NOTE | 2021-04-23 05:37 | NUR ---
AT APPROX. 22:05 PT WAS, PT. RAPID RESPONSE WAS CALLED DUE TO LETHARGIC. AT APPROX. 22:20 PT.WA Addendum: 04/23/21 at 0544 by Agency 02 RT RT AT APPROX 22:20, PT. WAS INTUBATED DUE TO HYPERCAPNIA; PT. WAS INTUBATED WITH SIZE 7.5 ETT WITH 23 CM AT THE LIP. PT. PLACED ON AC VC MODE; RR 20, TIDAL VOLUME 400 ML, PEEP 5, FiO2 1.0 PT. WAS TRANSPORTED SAFELY ALONGSIDE NURSES TO THE ICU FOR FURTHER EVALUATION AND FOR CLOSE MONITORING AND OBSERVATION.
[2021-04-23 05:50] LABS: CARBON DIOXIDE 36.8 mmol/L (21-32); CREATININE 0.7 mg/dL (0.6-1.3); POTASSIUM 4.8 mmol/L (3.5-5.1)
[2021-04-23 06:28] LABS: BASOPHILS % (AUTO) 0.1 % (0.0-2.0); HEMATOCRIT 37.9 % (36-48); HEMOGLOBIN 12.5 g/dL (12.0-16.0); LYMPHOCYTES # (AUTO) 0.6 K/uL (2.5-16.5); LYMPHOCYTES % (AUTO) 3.7 % (20.5-51.1); MEAN CORPUSCULAR HEMOGLOBIN 31 pg (27-31); MEAN CORPUSCULAR HGB CONC 33 g/dL (33-37); MEAN CORPUSCULAR VOLUME 93.9 fL (80-94); MONOCYTES # (AUTO) 1.3 K/uL (0.8-1.0); MONOCYTES % (AUTO) 7.8 % (1.7-9.3); NEUTROPHILS # (AUTO) 14.4 K/uL (1.8-7.7); NEUTROPHILS % (AUTO) 88.4 % (42.2-75.2); PLATELET COUNT (AUTO) 254 K/uL (140-450); RED BLOOD CELL COUNT(AUTO) 4.04 MIL/uL (4.20-5.40); RED CELL DISTRIBUTION WIDTH 13.9 % (11.6-13.7); WHITE BLOOD COUNT (AUTO) 16.3 K/uL (4.8-10.8)
--- NOTE | 2021-04-23 06:45 | NUR ---
RT AT BEDSIDE. WAS NOTIFIED ABOUT FIO2 CHANGE FROM 50% TO 40%. PT TOLERATING WELL WITH O2 SATURATION OF 100%. WILL CONTINUE TO MONITOR.
[2021-04-23] MEDS: ALBUTEROL SULFATE/IPRATROPIU 3 ML SOL IH SCH ×5 (06:57→22:34)
--- NOTE | 2021-04-23 07:27 | NUR ---
REPORT GIVEN TO RN DAYSGISELLEFT FOR CONTINUITY OF CARE
--- NOTE | 2021-04-23 07:28 | NUR ---
RECEIVED BEDSIDE REPORT FROM SNOWBOARDING INSTRUCTOR NURSE ONEL, PT SEDATED RASS -1. PT ON ETT TO VENT, AC/VC FIO2 40%, RATE 22, TV 400 PEEP 5. NO SOB NOTED, SATURATING @ 100%. IV TO L AC 20G RUNNING NS @ 60ML/HR AND PRECEDEX @ 1.1MCG/KG/HR AND R AC 20G RUNNING LEVOPHED @ 10MCG/MIN, INFUSING WELL. OGT IN PLACE CLAMPED. LAKE CATH IN PLACE DRAINING TO GRAVITY. INITIAL ASSESSMENT DONE, ALL SAFETY PRECAUTION MET, CALL LIGHT WITHIN REACH, WILL CONTINUE TO MONITOR.
--- NOTE | 2021-04-23 08:33 | NUR ---
DC PLANNING: THE PATIENT ADMITTED FROM HOME, BIB EMS WITH C/O SOB. H/O COPD, RECENTLY HOSPITALIZED AT [facility] FOR THE SAME C/O. O2 SATS ON RA IN THE FIELD WERE 78%. H/O ASTHMA, [place], COPD, HTN. ABG'S SHOWED HYPERCAPNIA, DIOXIDE 35. ORDER FOR CONSULTS WITH FOREST PATHOLOGY TEACHER AND MAPPING PILOT, CT ANGIO NEGATIVE FOR PE, FINDINGS OF EMPHYSEMA. RAPID RESPONSE CALL THIS MORNING DUE TO LETHARGY, PATIENT WAS INTUBATED AND TRANSFERRED TO THE ICU. CM SPOKE WITH THE PATIENT AT BEDSIDE YESTERDAY, PATIENT SOB, JESSICA GET INTERVIEW TIME TO A MINIMUM. THE PATIENT LIVES IN A GROUND FLOOR APARTMENT WITH A FRIEND, HAS HER DAUGHTER ARMAND A CONTACT BUT COULD NOT REMEMBER HER PHONE NUMBER, NUMBER LISTED ON THE FACE SHEET IS THE PATIENTS. THE PATIENT IS MINIMALLY ACTIVE AT HOME AND HAS FRIENDS WHO ASSIST WITH ERRANDS AND SHOPPING. SHE HAS DME OF O2, 3 IN 1 COMMODE, FWW, AND WC. INCOME SOURCE IS [employer]. ORDERS FOR BIPAP RECEIVED, CM WILL WORK ON THEM WHEN PATIENT IS CLINICALLY STABLE AND CLOSER TO DISCHARGE HOME DC IS UNCERTAIN AT THIS POINT. CM WILL FOLLOW FOR NEEDS. Addendum: 04/23/21 at 0842 by Karely Houston CM Amended: Links added. Addendum: 04/24/21 at 1148 by Karely Houston CM DC PLANNING: JESSICA MET WITH THE PATIENTS LIZZ ACUNA AND SON IN LAW OLIVEIRA. DAUGHTER ARMAND GOINS PHONE NUMBER IS [phone], HER SON IN LAW ROXANNE'S PHONE NUMBER [phone]. THE PATIENT WOULD LIKE ROXANNE TO BE THE FIRST POINT OF CONTACT AND HE WILL COMMUNICATE ANY CALLS TO ARMAND. THE PATIENT HAS ASKED TO BE DNR STATUS AND IS CURRENTLY ON BIPAP. JESSICA SPOKE WITH THE PATIENT AT BEDSIDE, SHE HAS REQUESTED SNF PLACEMENT WITH HOSPICE. FAMILY WOULD LIKE A FACILITY CLOSE TO [place] BUT PATIENT AND FAMILY DON'T HAVE A PREFERENCE FOR FACILITY. JESSICA SPOKE WITH [facility], THEY ARE NOT SURE THEY CAN ACCOMMODATE 24/7 BIPAP. JESSICA ALSO SPOKE WITH GIOVANNA AT [facility], PATIENT MIGHT MEET CRITERIA FOR SUBACUTE, SHE WILL SEE WHICH FACILITIES ARE ABLE TO ACCOMMODATE THE PATIENTS NEEDS. JESSICA ALSO SPOKE WITH RT VALENTINA TO DISCUSS BIPAP VS HIGH FLOW O2, HE WILL SPEAK WITH DR RICHMOND TO SEE IF HE WANTS THE PATIENT TO HAVE BREAKS OFF OF THE BIPAP. JESSICA WILL FOLLOW FOR NEEDS. Addendum: 04/25/21 at 0853 by Karely Houston CM DC PLANNING: PER RT PATIENT NOT TOLERATING BEING OFF OF BIPAP, PANIC WHEN ON NC. ON 28% FIO2, LEVOPHED, PRECEDEX, TPN, SOLUMEDROL, DIFLUCAN AND IVF'S. JESSICA SPOKE WITH GIOVANNA FROM [facility], PATIENT WILL NEED A SNF/SA BECAUSE OF THE BIPAP. INFORMATION FAXED TO HER FOR REVIEW BY HER DON FOR APPROPRIATE FACILITY PLACEMENT. JESSICA WILL FOLLOW. Addendum: 04/25/21 at 1154 by Karely Houston CM DC PLANNING: CM SPOKE WITH THE PATIENTS SON IN LAW OLIVEIRA BY PHONE, UPDATED HIM ON CONTACT WITH HOSPICE AGENCY AND PLACEMENT. ALSO SPOKE WITH THE ATTENDING MD, PATIENT NOT YET STABLE FOR DISCHARGE. JESSICA WILL FOLLOW. Addendum: 04/26/21 at 1214 by Karely Houston CM DC PLANNING: THE PATIENT IS NOW ON VAPOTHERM AT 30L, FIO2 24%. JESSICA SPOKE WIT GIOVANNA AT [facility] TO UPDATE HER, VAPOTHERM SETTINGS FAXED TO [facility], THEY WILL ALSO SPEAK WITH THE ICU TO GET MORE INFORMATION AND WILL THEN SPEAK WITH THE FAMILY. LITER FLOW MAY STILL BE TOO HIGH TO DC TO SNF UNDER HOSPICE. CM ALSO SPOKE WITH THE PATIENTS SON IN LAW OLIVEIRA TO LET HIM KNOW THAT HOSPICE WILL BE CALLING HIM REGARDING PLACEMENT, HE AND THE PATIENTS DAUGHTER ARE IN AGREEMENT WITH [facility] MANAGING THE PATIENT AND FINDING PLACEMENT. CM WILL FOLLOW. Addendum: 04/29/21 at 1030 by Karely Houston CM DC PLANNING: PATIENT NOW ON 15 L NC, REMAINS ON TPN BUT IS TOLERATING SMALL AMOUNTS OF PUREED DIET. JESSICA UPDATED GIOVANNA FROM [facility] AND FAXED HER THE PATIENTS FACE SHEET, GIOVANNA WILL START LOOKING FOR PLACEMENT. CM WILL FOLLOW. Addendum: 04/29/21 at 1521 by Karely Houston CM DC PLANNING: PER HOSPICE PATIENT CANNOT BE PLACED ON TPN. JESSICA ENDORSED THIS TO THE ATTENDING MD, TPN TO BE DC'D, SWALLOW EVAL ORDERED. JESSICA UPDATED GIOVANNA LOZANO [facility] ON PLANS SO SHE WILL KEEP LOOKING FOR AN ACCEPTING FACILITY, CM WILL FOLLOW.
[2021-04-23] MEDS ORDERED: PANTOPRAZOLE 40 MG INJ VIAL IVP SCH (09:00)
[2021-04-23] MEDS: amLODIPine 5 MG TAB PO SCH (09:00)
[2021-04-23] MEDS: NICOTINE TRANSD SYS 14 MG/24 HR PATCH TD SCH (09:20)
[2021-04-23] MEDS: ASPIRIN 81 MG TAB.CHEW PO SCH (09:20)
[2021-04-23] MEDS: PANTOPRAZOLE 40 MG INJ VIAL IVP SCH (09:35)
[2021-04-23] MEDS: DEXMEDETOMIDINE HCL 400 MCG in NACL 0.9% 96 ML IV PRN ×2 (10:34→23:00)
--- NOTE | 2021-04-23 12:01 | NUR ---
04/23/21 RD INITIAL ASSESSMENT COMPLETED PLEASE REFER TO NUTRITION ASSESSMENT UNDER CARE ACTIVITY FOR ESTIMATED NUTRITIONAL NEEDS. 1. WHEN/IF MEDICALLY APPROPRIATE, RECOMMEND VITAL AF 1.2 WITH A GOAL RATE OF 50 ML/HR -FWF: 150 ML Q6H OR PER MD -START AT 10 ML/HR AND INCREASE BY 10 ML Q4H TOLERATED -WILL PROVIDE 1440 KCAL AND 90 GM PROTEIN, MEETING 100% OF ESTIMATED NUTRITIONAL NEEDS 2. IF EXTUBATED, RECOMMEND CARDIAC DIET WITH ENSURE BID 3. RD TO FOLLOW-UP 2-3 DAYS, HIGH RISK ANA M [address]
[2021-04-23] MEDS ORDERED: fentaNYL citrate 0.05 MG/ML VIAL ONE (13:00)
[2021-04-23] MEDS ORDERED: fentaNYL citrate 0.05 MG/ML VIAL IVP PRN (13:10)
[2021-04-23] MEDS ORDERED: fentaNYL citrate 0.05 MG/ML VIAL IVP ONE (13:10)
--- NOTE | 2021-04-23 13:11 | NUR ---
BEDSIDE PLACED PT ON CPAP 5 PS 8 AND FIO2 21%. OBTAIN ABG IN OVER 2 HOURS AND CALL PHYSICIAN WITH RESULTS FOR POSSIBLE EXTUBATION. IF EXTUBATED TO PLACE PT ON BIPAP POST EXTUBATION. NURSE AWARE OF ORDER.
--- NOTE | 2021-04-23 14:46 | NUR ---
PT WOKE UP AGITATED, FIGHTING VENTILATOR, PER PRN MEDICATION PER DR RICHMOND ADMINISTERED, PT TOLERATED WELL, WILL CONTINUE TO MONITOR.
[2021-04-23] MEDS: LEVOFLOXACIN 750 MG/D5W PREMIX 150 ML IV SCH (15:14)
--- NOTE | 2021-04-23 16:10 | NUR ---
SPOKE TO DR RICHMOND, PER DR TO ORDER EXTUBATION, KEEP PT ON BIPAP UNTIL AM, KEEP SATURATION 88-92%, RT TO TITRATE. DC FENTANYL AND TO ORDER 0.25MG IVP DILAUDID PRN Q3H, NOTIFIED PT ALLERGIC TO CODEINE, DR CUEVAS, TO STILL ORDER. DR RICHMOND ALSO WANT TO ORDER PRN NARCAN FOR RESPIRATORY DEPRESSION. PER DR TO KEEP RR BETWEEN 15-20. WILL CONTINUE WITH ORDERS.
--- NOTE | 2021-04-23 16:10 | NUR ---
SPOKE TO REGARDING PT STATUS AND ABG RESULTS. WEANING PARAMETERS GIVEN TO AND PT MENTAL STATUS WHICH IS SLIGHTLY LETHARGIC BUT DOES WAKE UP WHEN SPOKEN TO. AT THIS TIME STATES TO EXTUBATE PT TO BIPAP. NURSE MADE AWARE OF ORDER.
--- NOTE | 2021-04-23 16:25 | NUR ---
PT EXTUBATED WITH NO ISSUES. POSITIVE LEAK TEST AROUND CUFF. NURSE BEDSIDE. PT AWAKE AND ALERT. NO STRIDOR HEARD ON AUSCULTATION.
[2021-04-23] MEDS ORDERED: NALOXONE 0.4 MG/ML VIAL IVP PRN (16:35)
--- NOTE | 2021-04-23 16:37 | NUR ---
PT PLACED ON BIPAP 12/ R 12 FIO2 30% PER . ALARMS ON AND FUNCTIONING. BIPAP PLUGGED INTO RED OUTLET. WILL CONTINUE TO MONITOR.
--- NOTE | 2021-04-23 18:55 | NUR ---
RECEIVED PT ON A BRANDON [employer] V60 BIPAP SETTINGS IPAP12, EPAP5, RR12, FIO2 30%. NO SIGNS OF RESPIRATORY DISTRESS NOTED AT THIS TIME. PT'S CURRENT O2 SATURATION IS 100%. ANTERIOR AUSCULTATION REVEALED BS CLEAR THROUGHOUT, DID NOT ADMINISTERED HHN TX PT UNAVAILABLE PROCEDURE BEING PERFORMED AT BED SIDE. MACHINE PLUGGED INTO RED OUTLET, ALARMS ARE ON AND AUDIBLE, SOFT PAD PLACED ON BRIDGE OF NOSE TO PREVENT SKIN BREAKDOWN. WILL CONTINUE TO MONITOR.
--- NOTE | 2021-04-23 19:24 | NUR ---
ENDORSED PT TO JOB DEVELOPMENT SPECIALIST NURSE, PT RESTING, NO DISTRESS NOTED, CALL LIGHT WITHIN REACH.
--- NOTE | 2021-04-23 19:30 | NUR ---
ASSUMED CARE OF PT.INITIAL ASSESSMENT COMPLETED.PT AWAKE ALERT AND ORIENTED.SR NOTED ON MONITOR.ON BIPAP 12/5 FIO2 30%.W/PERIPHERAL IV TO RT AC G20 INTACT,BRUISING NOTED TO SITE INFUSING NS AT 60ML/HR AND G20 TO RT F/A INTACT INFUSING LEVOPHED 4MG IN 250ML D5W AT 4MCG/MIN AND PRECEDEX DRIP AT 1MCG/KG/HR.MAINTAINED ON NPO EXCEPT MEDS.W/LAKE CATHETER TO BSD DRAINING SMALL AMT OF YELLOW URINE.SKIN INTACT.DENIES PAIN WHEN ASKED.SAFETY PRECAUTION IN PLACE.CALL LIGHT W/IN REACH.WILL CONTINUE TO CLOSELY MONITOR PT
--- NOTE | 2021-04-23 20:46 | NUR ---
CXR DONE.OK TO USE PICC LINE PER OLGA PICC LINE NURSE
[2021-04-23] MEDS: HYDROmorphone 1 MG/ML AMP IVP PRN (22:29)
--- NOTE | 2021-04-23 22:29 | NUR ---
PT APPEARS VERY RESTLESS WANTING TO GET OUT OF BED, DILAUDID GIVEN ORDERED.WILL CONTINUE TO CLOSELY MONITOR PT
--- NOTE | 2021-04-23 23:30 | NUR ---
PT ASLEEP; NO SIGNS OF RESTLESSNESS NOTED.WILL CONTINUE TO MONITOR.BIPAP STILL FIO2 AT 30%.NO SOB NOTED
[2021-04-24] VITALS (32 sets, daily range): BP systolic 109–168; BP diastolic 62–103
--- NOTE | 2021-04-24 | NUR ---
PT ASLEEP; NO PAIN NOTED; STILL ON PRECEDEX DRIP AT 1MCG/KG/HR, OFF LEVOPHED DRIP.BP WNL.
--- NOTE | 2021-04-24 02:16 | NUR ---
NO SOB NOTED ON BIPAP 30% FIO2.NO PAIN NOTED.WILL CONTINUE TO MONITOR PT
[2021-04-24] MEDS: ALBUTEROL SULFATE/IPRATROPIU 3 ML SOL IH SCH ×6 (03:38→23:18)
[2021-04-24] MEDS: NACL 0.9% 1,000 ML IV SCH ×2 (03:55→20:45)
--- NOTE | 2021-04-24 04:30 | NUR ---
PT AWAKE; OFFERED MORNING CARE,PT REFUSED STATING IT'S TOO COLD.DENIES PAIN.REPOSITIONED
[2021-04-24] MEDS: methylPREDNISolone SS 40 MG/ML VIAL IVP SCH ×3 (05:00→20:45)
[2021-04-24 05:48] LABS: ANION GAP 8.7 (8-16); CARBON DIOXIDE 32.9 mmol/L (21-32); CREATININE 0.5 mg/dL (0.6-1.3); POTASSIUM 4.6 mmol/L (3.5-5.1)
[2021-04-24 06:05] LABS: BASOPHILS % (AUTO) 0.1 % (0.0-2.0); HEMATOCRIT 32.7 % (36-48); HEMOGLOBIN 11.1 g/dL (12.0-16.0); LYMPHOCYTES # (AUTO) 0.3 K/uL (2.5-16.5); LYMPHOCYTES % (AUTO) 4.5 % (20.5-51.1); MEAN CORPUSCULAR HEMOGLOBIN 31 pg (27-31); MEAN CORPUSCULAR HGB CONC 34 g/dL (33-37); MEAN CORPUSCULAR VOLUME 92.3 fL (80-94); MONOCYTES # (AUTO) 0.3 K/uL (0.8-1.0); MONOCYTES % (AUTO) 4.3 % (1.7-9.3); NEUTROPHILS # (AUTO) 6.2 K/uL (1.8-7.7); NEUTROPHILS % (AUTO) 91.1 % (42.2-75.2); PLATELET COUNT (AUTO) 151 K/uL (140-450); RED BLOOD CELL COUNT(AUTO) 3.54 MIL/uL (4.20-5.40); RED CELL DISTRIBUTION WIDTH 13.6 % (11.6-13.7); WHITE BLOOD COUNT (AUTO) 6.8 K/uL (4.8-10.8)
--- NOTE | 2021-04-24 07:30 | NUR ---
RECEIVED BEDSIDE REPORT FROM PROCESSING INSPECTOR NURSE. PT AOX4, ABLE TO MAKE NEEDS KNOWN. NO C/O PAIN. ON BIPAP /,FIO2 24% NO SOB NOTED, SATURATING @ 98%. WITH TIFFANY PICC RUNNING NS @ 60ML/HR AND PRECEDEX @ 1 MCG/KG/HR INFUSING WELL. WITH PERIPHERAL IV RAC 20G AND LFA 20G SALINE LOCK. LAKE CATH IN PLACE DRAINING TO GRAVITY. INITIAL ASSESSMENT DONE, ALL SAFETY PRECAUTION MET, CALL LIGHT WITHIN REACH, WILL CONTINUE TO MONITOR.
[2021-04-24] MEDS: DEXMEDETOMIDINE HCL 400 MCG in NACL 0.9% 96 ML IV PRN ×2 (07:35→19:25)
[2021-04-24] MEDS: NICOTINE TRANSD SYS 14 MG/24 HR PATCH TD SCH (09:00)
--- NOTE | 2021-04-24 09:00 | NUR ---
DUE MEDS GIVEN. DILAUDID 0.25MG GIVEN FOR TACHYPNEA
--- NOTE | 2021-04-24 09:05 | NUR ---
DR RICHMOND AT BEDSIDE, SPOKE TO PT REGARDING PLAN OF CARE. DR RICHMOND CLARIFIED CODE STATUS WITH PATIENT. IN CASE OF CARDIAC ARREST, PT REFUSES CHEST COMPRESSIONS AND INTUBATION.
--- NOTE | 2021-04-24 09:10 | NUR ---
DR RICHMOND SPOKE TO PT'S DAUGHTER ARMAND, GAVE AN UPDATE, AND NOTIFIED HER ABOUT PT'S DECISION TO BE DNR
[2021-04-24] MEDS: ASPIRIN 81 MG TAB.CHEW PO SCH (09:15)
[2021-04-24] MEDS: amLODIPine 5 MG TAB PO SCH (09:15)
[2021-04-24] MEDS: HYDROmorphone 1 MG/ML AMP IVP PRN ×2 (09:15→15:59)
[2021-04-24] MEDS: PANTOPRAZOLE 40 MG INJ VIAL IVP SCH (09:15)
[2021-04-24] MEDS ORDERED: TPN PER PHARMACY MC PRN (09:30)
[2021-04-24 10:21] LABS: PHOSPHORUS 2.4 mg/dL (2.5-4.9)
--- NOTE | 2021-04-24 10:30 | NUR ---
FLIGHT DIRECTOR JESSIE AT BEDSIDE, SPOKE TO PATIENT AND FAMILY REGARDING PLAN OF CARE
--- NOTE | 2021-04-24 12:30 | NUR ---
PT RESTING IN BED, NO RESPIRATORY DISTRESS ON BIPAP 12/5 FIO2 21%
--- NOTE | 2021-04-24 15:30 | NUR ---
SCHEDULED BREATHING TX ADMINISTERED. PT REMOVED FROM BIPAP, WILL ATTEMPT TO KEEP PT OFF OF BIPAP. PT PLACED ON 2L NC.
--- NOTE | 2021-04-24 15:43 | NUR ---
POST BREATHING TX PT COMPLAINING OF SOB STATING SHE NEEDS TO WEAR BIPAP MASK. PT TACHYPNEIC AND UNABLE TO SPEAK IN COMPLETE SENTENCES. PT PLACED BACK ON BIPAP WITH ORIGINAL SETTINGS, PT STATES RELIEF WITH BIPAP MASK ON. ALARMS ON AND FUNCTIONING. WILL CONTINUE TO MONITOR.
--- NOTE | 2021-04-24 16:00 | NUR ---
WITH EPISODE OF SOB, DILAUDID GIVEN ORDERED
--- NOTE | 2021-04-24 18:31 | NUR ---
NO SOB AT THIS TIME, NO C/O PAIN. DAUGHTER VISITING AT BEDSIDE.
--- NOTE | 2021-04-24 19:25 | NUR ---
Received report on pt. Pt sleepy, arousable, on bipap FiO2 28%. Pt states no pain or distress at this time, states "I just want to sleep." PICC line with IVF infusing, TPN to start tonight per MD order. Buckley in place draining urine to gravity.
--- NOTE | 2021-04-24 19:29 | NUR ---
RECEIVED PT ON A [employer] V60 BIPAP SETTINGS IPAP12, EPAP5, RR12, FIO2 28%. NO SIGNS OF RESPIRATORY DISTRESS NOTED AT THIS TIME. PT'S CURRENT O2 SATURATION IS 98%. ANTERIOR AUSCULTATION REVEALED BS CLEAR THROUGHOUT, ADMINISTERED HHN TX VIA NIPPV PT TOLERATED WELL NO ADVERSE EFFECTS. MACHINE PLUGGED INTO RED OUTLET, ALARMS ARE ON AND AUDIBLE, SOFT PAD PLACED ON BRIDGE OF NOSE TO PREVENT SKIN BREAKDOWN. WILL CONTINUE TO MONITOR.
[2021-04-24] MEDS: BLOOD GLUCOSE MONITORING 1 DEV DEV MC SCH ×2 (20:16→23:41)
[2021-04-24] MEDS: DEXTROSE 50% IV SCH ×3 (20:44)
[2021-04-24] MEDS: FAT EMULSION 20% IV SCH ×3 (20:44)
[2021-04-24] MEDS: AMINO ACIDS 8.5% IV SCH ×3 (20:44)
[2021-04-24] MEDS: INSULIN LISPRO SLIDING SCALE 100 UNITS/ML VIAL SUBQ PRN (23:46)
[2021-04-25] VITALS (21 sets, daily range): BP systolic 113–148; BP diastolic 56–78
[2021-04-25] MEDS: ALBUTEROL SULFATE/IPRATROPIU 3 ML SOL IH SCH ×6 (02:32→23:33)
[2021-04-25] MEDS: DEXMEDETOMIDINE HCL 400 MCG in NACL 0.9% 96 ML IV PRN ×2 (04:46→16:56)
[2021-04-25] MEDS: methylPREDNISolone SS 40 MG/ML VIAL IVP SCH ×3 (05:05→20:38)
[2021-04-25] MEDS: BLOOD GLUCOSE MONITORING 1 DEV DEV MC SCH ×3 (05:06→18:28)
--- NOTE | 2021-04-25 06:14 | NUR ---
Pt resting comfortably on bipap, remains on fiO2 28%, no distres noted, arousable on precedex drip. Pt states no pain at this time.
[2021-04-25 06:32] LABS: BASOPHILS % (AUTO) 0.1 % (0.0-2.0); HEMATOCRIT 32.4 % (36-48); LYMPHOCYTES # (AUTO) 0.2 K/uL (2.5-16.5); MEAN CORPUSCULAR HEMOGLOBIN 32 pg (27-31); MEAN CORPUSCULAR HGB CONC 34 g/dL (33-37); MEAN CORPUSCULAR VOLUME 93.3 fL (80-94); MONOCYTES # (AUTO) 0.2 K/uL (0.8-1.0); MONOCYTES % (AUTO) 3.4 % (1.7-9.3); NEUTROPHILS # (AUTO) 6.4 K/uL (1.8-7.7); NEUTROPHILS % (AUTO) 93.5 % (42.2-75.2); PLATELET COUNT (AUTO) 154 K/uL (140-450); RED BLOOD CELL COUNT(AUTO) 3.47 MIL/uL (4.20-5.40); WHITE BLOOD COUNT (AUTO) 6.9 K/uL (4.8-10.8)
[2021-04-25 06:56] LABS: ANION GAP 12.3 (8-16); CARBON DIOXIDE 29.2 mmol/L (21-32); CREATININE 0.4 mg/dL (0.6-1.3); POTASSIUM 5.5 mmol/L (3.5-5.1)
--- NOTE | 2021-04-25 07:30 | NUR ---
RECEIVED BEDSIDE REPORT FROM COUNTER MANAGER NURSE. PT AOX4, ABLE TO MAKE NEEDS KNOWN. NO C/O PAIN. ON BIPAP 01/13,FIO2 28% NO SOB NOTED, SATURATING @ 97%. WITH TIFFANY PICC RUNNING NS @ 60ML/HR AND PRECEDEX @ 0.9 MCG/KG/HR INFUSING WELL. LAKE CATH IN PLACE DRAINING TO GRAVITY. INITIAL ASSESSMENT DONE, ALL SAFETY PRECAUTION MET, CALL LIGHT WITHIN REACH, WILL CONTINUE TO MONITOR.
[2021-04-25 08:31] LABS: ANION GAP 8.1 (8-16); CARBON DIOXIDE 31.3 mmol/L (21-32); CREATININE 0.4 mg/dL (0.6-1.3); POTASSIUM 4.4 mmol/L (3.5-5.1)
[2021-04-25] MEDS: amLODIPine 5 MG TAB PO SCH (08:45)
[2021-04-25] MEDS: NICOTINE TRANSD SYS 14 MG/24 HR PATCH TD SCH (08:45)
[2021-04-25] MEDS: PANTOPRAZOLE 40 MG INJ VIAL IVP SCH (08:45)
[2021-04-25] MEDS: ASPIRIN 81 MG TAB.CHEW PO SCH (08:45)
[2021-04-25] MEDS: HYDROmorphone 1 MG/ML AMP IVP PRN ×3 (08:46→18:28)
--- NOTE | 2021-04-25 08:50 | NUR ---
DUE MEDS GIVEN. DILAUDID 0.25MG GIVEN FOR SOB ORDERED
[2021-04-25] MEDS: FLUCONAZOLE 100 MG/NS PREMIX 50 ML IV SCH (09:01)
--- NOTE | 2021-04-25 11:15 | NUR ---
SPEECH THERAPST AT BEDSIDE FOR SWALLOW EVAL. RECOMMENDED PUREE DIET AND THIN LIQUIDS FOR ORAL GRATIFICATION. RT ALSO AT BEDSIDE, PLACED PT ON HI FLOW 30L 40%, TOLERATING WELL
[2021-04-25 12:19] LABS: MAGNESIUM 2.2 mg/dL (1.8-2.4)
--- NOTE | 2021-04-25 12:30 | NUR ---
PT WITH EPISODE OF SOB, DILAUDID 0.25MG GIVEN ORDERED. ASSISTED PT WITH LUNCH. PT TOLERATED PUREE FOOD, ATE 10%
[2021-04-25] MEDS: INSULIN LISPRO SLIDING SCALE 100 UNITS/ML VIAL SUBQ PRN ×2 (13:16→18:29)
--- NOTE | 2021-04-25 13:28 | NUR ---
PT RESTING IN BED, NO SOB, NO C/O PAIN
[2021-04-25] MEDS: LEVOFLOXACIN 750 MG/D5W PREMIX 150 ML IV SCH (14:42)
--- NOTE | 2021-04-25 15:05 | NUR ---
04/25/21 RD FOLLOW UP COMPLETED PLEASE REFER TO NUTRITION ASSESSMENT UNDER CARE ACTIVITY FOR ESTIMATED NUTRITIONAL NEEDS. 1. CONTINUE PUREE DIET TOLERATED 2. CONTINUE TPN PER PHARMACY 3. RECOMMEND ORAL SUPPLEMENTS IF TPN IS D/C OR PO INTAKE CONTINUES TO BE < 75% 4. RD TO FOLLOW-UP 2-3 DAYS, HIGH RISK ANA M [address] RD
--- NOTE | 2021-04-25 15:30 | NUR ---
NO RESPIRATORY DISTRESS ON HI FLOW 30L FIO2 24%
--- NOTE | 2021-04-25 19:30 | NUR ---
Received report on pt. Pt AOx4, drowsy and arousable. Pt states no pain or distress at this time on high flow NC 30L FiO2 24% and on precedex drip. TPN infusing. Buckley draining urine to gravity.
[2021-04-25] MEDS: FAT EMULSION 20% IV SCH ×3 (20:36)
[2021-04-25] MEDS: AMINO ACIDS 8.5% IV SCH ×3 (20:36)
[2021-04-25] MEDS: DEXTROSE 50% IV SCH ×3 (20:36)
[2021-04-26] VITALS (15 sets, daily range): BP systolic 104–152; BP diastolic 59–91
[2021-04-26] MEDS: BLOOD GLUCOSE MONITORING 1 DEV DEV MC SCH ×5 (00:03→23:43)
[2021-04-26] MEDS: ALBUTEROL SULFATE/IPRATROPIU 3 ML SOL IH SCH ×6 (02:55→23:30)
[2021-04-26] MEDS: HYDROmorphone 1 MG/ML AMP IVP PRN (03:14)
--- NOTE | 2021-04-26 03:15 | NUR ---
PATIENT BEGAN EXPERIENCING EXTREME RESTLESSNESS. PRN DILAUDID GIVEN. WILL CONTINUE TO MONITOR.
[2021-04-26] MEDS: DEXMEDETOMIDINE HCL 400 MCG in NACL 0.9% 96 ML IV PRN ×2 (05:04→21:26)
[2021-04-26] MEDS: methylPREDNISolone SS 40 MG/ML VIAL IVP SCH ×3 (05:27→20:19)
[2021-04-26] MEDS: INSULIN LISPRO SLIDING SCALE 100 UNITS/ML VIAL SUBQ PRN ×2 (05:33→23:44)
[2021-04-26 05:50] LABS: HEMATOCRIT 32.1 % (36-48); HEMOGLOBIN 10.9 g/dL (12.0-16.0); LYMPHOCYTES # (AUTO) 0.2 K/uL (2.5-16.5); LYMPHOCYTES % (AUTO) 2.1 % (20.5-51.1); MEAN CORPUSCULAR HEMOGLOBIN 31 pg (27-31); MEAN CORPUSCULAR HGB CONC 34 g/dL (33-37); MEAN CORPUSCULAR VOLUME 92.1 fL (80-94); MONOCYTES # (AUTO) 0.3 K/uL (0.8-1.0); MONOCYTES % (AUTO) 3.3 % (1.7-9.3); NEUTROPHILS # (AUTO) 8.9 K/uL (1.8-7.7); NEUTROPHILS % (AUTO) 94.6 % (42.2-75.2); PLATELET COUNT (AUTO) 157 K/uL (140-450); RED BLOOD CELL COUNT(AUTO) 3.48 MIL/uL (4.20-5.40); WHITE BLOOD COUNT (AUTO) 9.4 K/uL (4.8-10.8)
[2021-04-26 06:07] LABS: MAGNESIUM 1.9 mg/dL (1.8-2.4); PHOSPHORUS 2.6 mg/dL (2.5-4.9)
[2021-04-26 06:08] LABS: ANION GAP 8.2 (8-16); CARBON DIOXIDE 33.2 mmol/L (21-32); CREATININE 0.4 mg/dL (0.6-1.3); POTASSIUM 4.4 mmol/L (3.5-5.1)
--- NOTE | 2021-04-26 07:00 | NUR ---
Received report from Nahed LARRY and assumed care of patient. Patient is resting with eyes closed, no signs of acute distress noted, NSR on the monitor. Patient does wake and is able to speak and is AAO. Patient has a PICC line to the L upper arm, there is TPN infusing at 40, and Precedex at 0.7. Will follow plan of care and report any abnormalities.
[2021-04-26] MEDS: NICOTINE TRANSD SYS 14 MG/24 HR PATCH TD SCH (09:00)
[2021-04-26] MEDS: ASPIRIN 81 MG TAB.CHEW PO SCH (09:16)
[2021-04-26] MEDS: PANTOPRAZOLE 40 MG INJ VIAL IVP SCH (09:16)
[2021-04-26] MEDS: amLODIPine 5 MG TAB PO SCH (09:16)
[2021-04-26] MEDS: FLUCONAZOLE 100 MG/NS PREMIX 50 ML IV SCH (09:38)
--- NOTE | 2021-04-26 09:45 | NUR ---
Dr. Quesada at bedside.
[2021-04-26] MEDS: FUROSEMIDE 40 MG/4 ML VIAL IVP SCH (10:07)
--- NOTE | 2021-04-26 11:00 | NUR ---
Patient urine output increasing. Patient able to fall asleep and rest. Patient breathing even and unlabored, NSR on the monitor, will continue to monitor.
--- NOTE | 2021-04-26 12:25 | NUR ---
Lauren from [facility] called to follow up on patient's status. Per Lauren, they can only accept the patient on home hospice if patient is at max flow of 20 L. Lauren stated she will be following up with the Hot Billet Shear Operator.
--- NOTE | 2021-04-26 13:00 | NUR ---
Patient has been mostly sleeping for the past 4 hrs. She is breathing even and unlabored, denies any pain, NSR on the monitor. Patient reporting she feels a lot better. Will continue to monitor.
--- NOTE | 2021-04-26 16:53 | NUR ---
Family at bedside. Patient interacting with family well, she is breathing even and unlabored, no signs of acute distress noted.
--- NOTE | 2021-04-26 17:00 | NUR ---
RT decreased O2 flow to 20 L. Will closely monitor patient.
--- NOTE | 2021-04-26 19:00 | NUR ---
Endorsed report to Milagros LARRY to transfer care of patient. Patient sitting up in bed NSR on the monitor, no signs of acute distress noted, VSS.
--- NOTE | 2021-04-26 19:30 | NUR ---
ASSUMED CARE OF PT.INITIAL ASSESSMENT COMPLETED.PT AWAKE ALERT AND ORIENTED.SR/SB NOTED ON MONITOR. W/PICC LINE TO MIGUEL INTACT.GOOD BLOOD RETURN TO BOTH PORTS INFUSING NS AT 5ML/HR, PRECEDEX DRIP AT 0.7MCG/KG/HR AND TPN AT 50ML/HR.ON PUREE DIET; PT REFUSING TO EAT THE FOOD, STATED SHE DOESN'T WANT TO EAT IT; OFFERED APPLE SAUCE.W/LAKE CATHETER TO BSD DRAINING SMALL AMT OF YELLOW URINE.SKIN INTACT.DENIES PAIN WHEN ASKED.SAFETY PRECAUTION IN PLACE.CALL LIGHT W/IN REACH.WILL CONTINUE TO CLOSELY MONITOR PT
[2021-04-26] MEDS ORDERED: AMINO ACIDS 8.5% IV SCH ×3 (20:00)
[2021-04-26] MEDS ORDERED: FAT EMULSION 20% IV SCH ×3 (20:00)
[2021-04-26] MEDS ORDERED: DEXTROSE 50% IV SCH ×3 (20:00)
--- NOTE | 2021-04-26 20:30 | NUR ---
ALL DUE MEDS GIVEN.BED BATH GIVEN PER PTS REQUEST.DENIES PAIN
--- NOTE | 2021-04-26 22:30 | NUR ---
INTERMITTENT COUGHING NOTED; PER PT, SCANTY AMT OF SPUTUM SUCTIONED.DENIES PAIN.REFUSED TO BE REPOSITIONED
[2021-04-27] VITALS (28 sets, daily range): BP systolic 107–140; BP diastolic 50–84
--- NOTE | 2021-04-27 00:14 | NUR ---
ASLEEP;EASILY AROUSABLE.STILL ON HIGH FLOW 24% FIO2.COUGHING STILL NOTED AT TIMES.PT REFUSED COUGH MEDICATION.WILL CONTINUE TO CLOSELY MONITOR PT.
[2021-04-27] MEDS: ALBUTEROL SULFATE/IPRATROPIU 3 ML SOL IH SCH ×6 (02:20→23:00)
--- NOTE | 2021-04-27 02:32 | NUR ---
HF TITRATED TO 16L 24% AND TOLERATING WELL WILL CONTINUE TO MONITOR
--- NOTE | 2021-04-27 04:00 | NUR ---
PT DOZING ON AND OFF; STILL ON HIGH FLOW FIO2 24%.SOB ON EXERTION.INTERMITTENT COUGHING STILL NOTED.
[2021-04-27] MEDS: methylPREDNISolone SS 40 MG/ML VIAL IVP SCH ×3 (05:00→20:33)
[2021-04-27] MEDS: HYDROmorphone 1 MG/ML AMP IVP PRN ×4 (05:33→23:00)
--- NOTE | 2021-04-27 06:00 | NUR ---
BS 153; INSULIN COVERAGE ADMINISTERED.
[2021-04-27] MEDS: BLOOD GLUCOSE MONITORING 1 DEV DEV MC SCH ×3 (06:14→17:57)
[2021-04-27] MEDS: INSULIN LISPRO SLIDING SCALE 100 UNITS/ML VIAL SUBQ PRN ×2 (06:19→12:13)
[2021-04-27 07:05] LABS: HEMOGLOBIN 10.9 g/dL (12.0-16.0); LYMPHOCYTES # (AUTO) 0.2 K/uL (2.5-16.5); LYMPHOCYTES % (AUTO) 2.3 % (20.5-51.1); MEAN CORPUSCULAR HEMOGLOBIN 32 pg (27-31); MEAN CORPUSCULAR HGB CONC 35 g/dL (33-37); MEAN CORPUSCULAR VOLUME 90.3 fL (80-94); MONOCYTES # (AUTO) 0.3 K/uL (0.8-1.0); MONOCYTES % (AUTO) 3.2 % (1.7-9.3); NEUTROPHILS # (AUTO) 9.5 K/uL (1.8-7.7); NEUTROPHILS % (AUTO) 94.5 % (42.2-75.2); PLATELET COUNT (AUTO) 163 K/uL (140-450); RED BLOOD CELL COUNT(AUTO) 3.43 MIL/uL (4.20-5.40); RED CELL DISTRIBUTION WIDTH 13.2 % (11.6-13.7); WHITE BLOOD COUNT (AUTO) 10.1 K/uL (4.8-10.8)
[2021-04-27 07:09] LABS: MAGNESIUM 1.9 mg/dL (1.8-2.4); PHOSPHORUS 2.9 mg/dL (2.5-4.9)
[2021-04-27 07:33] LABS: ANION GAP 6.3 (8-16); CARBON DIOXIDE 35.4 mmol/L (21-32); CREATININE 0.5 mg/dL (0.6-1.3); POTASSIUM 3.7 mmol/L (3.5-5.1)
[2021-04-27] MEDS: NICOTINE TRANSD SYS 14 MG/24 HR PATCH TD SCH (08:52)
[2021-04-27] MEDS: ASPIRIN 81 MG TAB.CHEW PO SCH (08:53)
[2021-04-27] MEDS: FUROSEMIDE 40 MG/4 ML VIAL IVP SCH (08:53)
[2021-04-27] MEDS: amLODIPine 5 MG TAB PO SCH (08:53)
[2021-04-27] MEDS: PANTOPRAZOLE 40 MG INJ VIAL IVP SCH (08:53)
--- NOTE | 2021-04-27 09:15 | NUR ---
RECEIVED BEDSIDE REPORT FROM POLI LEHMAN RN FOR CONTINUITY OF CARE. PT IN THE BED, EYES CLOSED, PERRLA, AOX4, ABLE TO MAKE NEEDS KNOWN. ON HI FLOW NC AT 16L, FIO2 24%. WITH MIGUEL PICC RUNNING NS TKO @ 5 ML/HR, TPN AT 50 ML/HR, AND PRECEDEX @ 0.7 MCG/KG/HR INFUSING WELL. LAKE CATH IN PLACE DRAINING TO GRAVITY. INITIAL ASSESSMENT DONE, ALL SAFETY PRECAUTION MET, CALL LIGHT WITHIN REACH, WILL CONTINUE TO CLOSELY MONITOR.
--- NOTE | 2021-04-27 09:33 | NUR ---
(04/27/21) RD FOLLOW UP COMPLETED PLEASE REFER TO NUTRITION PROGRESS NOTE UNDER CARE ACTIVITY FOR ESTIMATED NUTRITION NEEDS. RD RECOMMENDATIONS: 1. CONTINUE PUREE DIET TOLERATED 2. CONTINUE TPN PER PHARMACY 3. RECOMMEND ORAL SUPPLEMENTS IF TPN IS D/C OR PO INTAKE CONTINUES TO BE < 75% 4. RD TO FOLLOW-UP 2-3 DAYS, HIGH RISK JOE NGUYEN MS, RDN
[2021-04-27] MEDS: ONDANSETRON 4 MG/2 ML VIAL IM/IVP PRN ×2 (10:11→16:01)
--- NOTE | 2021-04-27 11:25 | NUR ---
SEEN AND EXAMINED BY DR LUNA.
[2021-04-27] MEDS: DEXMEDETOMIDINE HCL 400 MCG in NACL 0.9% 96 ML IV PRN (11:59)
--- NOTE | 2021-04-27 15:15 | NUR ---
CLEANED AND REPOSITIONED. TOLERATED POORLY, FELT SOB WITH EXERTION. WILL CONTINUE TO CLOSELY MONITOR.
[2021-04-27] MEDS: LEVOFLOXACIN 750 MG/D5W PREMIX 150 ML IV SCH (15:22)
--- NOTE | 2021-04-27 15:58 | NUR ---
SEEN AND EXAMINED BY DR KRUEGER.
--- NOTE | 2021-04-27 19:08 | NUR ---
ENDORSED BEDSIDE REPORT TO ONEL LEHMAN RN FOR CONTINUITY OF CARE.
--- NOTE | 2021-04-27 19:15 | NUR ---
REPORT RECEIVED AT BEDSIDE FROM MONAEAZSUHAS RN FOR CONTINUITY OF CARE. PT LAYING IN BED. AOX4; ABLE TO LET NEEDS KNOWN. LUNG SOUNDS DIMINISHED THROUGHOUT; ON HIGH-FLOW NC O2 10L FIO2 24% WITH O2 SATURATION OF 90%. MIGUEL PICC ALREADY IN PLACE, PATENT AND INTACT, INFUSING TPN @50 ML/HR AND NS @5 ML/HR. F/C ALREADY IN PLACE DRAINING TO GRAVITY. PT APPEARS RESTLESS AND HAS COMPLAINT OF 10/10 BODY ACHING PAIN. DILAUDID ADMINISTERED ORDERED. SAFETY MEASURES IN PLACE. INITIAL ASSESSMENT COMPLETED. BED IN LOWEST POSITION WITH CALL LIGHT IN REACH. WILL CONTINUE TO MONITOR.
[2021-04-27] MEDS: AMINO ACIDS 8.5% IV SCH (19:56)
[2021-04-27] MEDS: HUMAN IV SCH (19:56)
[2021-04-27] MEDS: DEXTROSE 50% IV SCH (19:56)
[2021-04-27] MEDS: INSULIN REGULAR IV SCH (19:56)
--- NOTE | 2021-04-27 20:35 | NUR ---
PT DESAT TO LOW 80s FLOW + FIO2 TITRATED 18L 30% PT TOLERATING WELL AND CURRENT SPO2 91% ( 15 MIN POST TITRATION ) WILL CONTINUE TO MONITOR AND TITRATE TOLERATED
--- NOTE | 2021-04-27 23:05 | NUR ---
PT OBSERVED. APPEARS RESTLESS AND PT STATED THAT SHE WAS FEELING FULL BODY ACHING PAIN 11/18. PRN DILAUDID ADMIN ORDERED. NADR NOTED. PT NOW LAYING IN BED WATCHING TV. APPEARS MORE RELAXED. TURNED AND REPOSITIONED. VSS. WILL CONTINUE TO MONITOR.
[2021-04-28] VITALS (16 sets, daily range): BP systolic 109–151; BP diastolic 63–91
--- NOTE | 2021-04-28 02:15 | NUR ---
PT OBSERVED. COMPLAINT OF DISCOMFORT. PT TURNED AND REPOSITIONED. EXTRA PILLOW AND BLANKET PROVIDED. ORAL CARE GIVEN. TOLERATED WELL. VSS. WILL CONTINUE TO MONITOR.
[2021-04-28] MEDS: ALBUTEROL SULFATE/IPRATROPIU 3 ML SOL IH SCH ×6 (03:05→23:17)
[2021-04-28] MEDS: HYDROmorphone 1 MG/ML AMP IVP PRN ×3 (03:07→15:34)
[2021-04-28] MEDS: methylPREDNISolone SS 40 MG/ML VIAL IVP SCH ×2 (05:09→12:34)
[2021-04-28] MEDS: BLOOD GLUCOSE MONITORING 1 DEV DEV MC SCH ×4 (05:54→17:59)
[2021-04-28 06:01] LABS: BASOPHILS % (AUTO) 0.2 % (0.0-2.0); HEMATOCRIT 31.2 % (36-48); HEMOGLOBIN 10.8 g/dL (12.0-16.0); LYMPHOCYTES # (AUTO) 0.1 K/uL (2.5-16.5); MEAN CORPUSCULAR HEMOGLOBIN 31 pg (27-31); MEAN CORPUSCULAR HGB CONC 35 g/dL (33-37); MEAN CORPUSCULAR VOLUME 90.6 fL (80-94); MONOCYTES # (AUTO) 0.6 K/uL (0.8-1.0); MONOCYTES % (AUTO) 4.2 % (1.7-9.3); NEUTROPHILS # (AUTO) 13.3 K/uL (1.8-7.7); PLATELET COUNT (AUTO) 171 K/uL (140-450); RED BLOOD CELL COUNT(AUTO) 3.44 MIL/uL (4.20-5.40); RED CELL DISTRIBUTION WIDTH 13.4 % (11.6-13.7); WHITE BLOOD COUNT (AUTO) 14.1 K/uL (4.8-10.8)
[2021-04-28 06:11] LABS: ANION GAP 6.4 (8-16); CREATININE 0.4 mg/dL (0.6-1.3); POTASSIUM 3.4 mmol/L (3.5-5.1)
[2021-04-28 06:12] LABS: MAGNESIUM 2.1 mg/dL (1.8-2.4); PHOSPHORUS 2.9 mg/dL (2.5-4.9)
[2021-04-28] MEDS ORDERED: POTASSIUM CHLORIDE 20% 40 MEQ/15 ML UDC PO PRN (06:40)
[2021-04-28 06:48] LABS: NEUTROPHILS % (AUTO) 94.6 % (42.2-75.2)
--- NOTE | 2021-04-28 07:18 | NUR ---
REPORT GIVEN AT BEDSIDE TO DAY SHIFT RN TINO FOR CONTINUITY OF CARE
--- NOTE | 2021-04-28 07:30 | NUR ---
RECEIVED BEDSIDE REPORT FROM NIGHT RN FOR CONTINUITY OF CARE. PT IN THE BED, AWAKE, PERRLA, AOX4, ABLE TO MAKE NEEDS KNOWN. ON HI FLOW NC AT 18L, FIO2 30%. WITH EPISODES OF PRODUCTIVE COUGH AND CHEST PAIN WHEN COUGHING. WITH MIGUEL PICC RUNNING NS TKO @ 5 ML/HR, TPN AT 50 ML/HR. LAKE CATH IN PLACE DRAINING TO GRAVITY. INITIAL ASSESSMENT DONE, ALL SAFETY PRECAUTION MET, CALL LIGHT WITHIN REACH, WILL CONTINUE TO CLOSELY MONITOR.
[2021-04-28] MEDS: guaiFENesin DM 200/20 MG-10 ML 10 ML UDC PO PRN (08:30)
--- NOTE | 2021-04-28 08:30 | NUR ---
DUE MEDS GIVEN. PRN ROBITUSSIN DM GIVEN ORDERED. ASSISTED WITH BREAKFAST. ORAL CARE DONE
[2021-04-28] MEDS: PANTOPRAZOLE 40 MG INJ VIAL IVP SCH (08:40)
[2021-04-28] MEDS: amLODIPine 5 MG TAB PO SCH (08:40)
[2021-04-28] MEDS: FUROSEMIDE 40 MG/4 ML VIAL IVP SCH (08:40)
[2021-04-28] MEDS: ASPIRIN 81 MG TAB.CHEW PO SCH (08:40)
[2021-04-28] MEDS: NICOTINE TRANSD SYS 14 MG/24 HR PATCH TD SCH (08:41)
--- NOTE | 2021-04-28 10:15 | NUR ---
WITH GENERALIZED PAIN AND CHEST PAIN 7/10, DILAUDID GIVEN ORDERED
[2021-04-28] MEDS ORDERED: POTASSIUM CHL 20 MEQ/NACL 0.9% 1,000 ML IV SCH (12:45)
[2021-04-28] MEDS ORDERED: KCL 20 MEQ/WATER INJ PREMIX 200 ML IV PRN (12:55)
--- NOTE | 2021-04-28 13:15 | NUR ---
SEEN AND EXAMINED BY DR LUNA, NEW ORDERS NOTED, CLEARED FOR DOWNGRADE TO TELE
[2021-04-28] MEDS: ONDANSETRON 4 MG/2 ML VIAL IM/IVP PRN ×2 (14:50→20:50)
--- NOTE | 2021-04-28 15:00 | NUR ---
WITH C/O NAUSEA AND "UPSET STOMACH", ZOFRAN GIVEN ORDERED
--- NOTE | 2021-04-28 17:15 | NUR ---
REPORT GIVEN TO VICTORINO Blanco RN
--- NOTE | 2021-04-28 17:30 | NUR ---
transferred pt to floor on Oxymizer placed back on hfnc after transfer to tele floor
--- NOTE | 2021-04-28 18:00 | NUR ---
TRANSFERRED TO TELE RM 106G
--- NOTE | 2021-04-28 18:08 | NUR ---
PT RECEIVED ON FLOOR, PT AOx4, VSS, NAD NOTED. PT ON 15L HFNC. PT TOLERATING TPN. REPORT RECEIVED FROM KENDY JIMÉNEZ. PT HAS MIGUEL PICC LINE CDI. SAFETY MEASURES IN PLACE.
--- NOTE | 2021-04-28 19:30 | NUR ---
RECEIVED REPORT FROM RN DAYSHIFT NURSE AT BEDSIDE FOR CONTINUITY OF CARE, PT SITTING UP IN BED HOB UP 90% AND SHE IS ON 15 LITERS HI FLOW N/C. SHE ALSO HAS A LEFT UPPER ARM PICC LINE DOUBLE LUMEN RUNNING TPN AT 50MLS/HR. PT HAS A LAKE CATHETER INTACT AND DRAINING YELLOW URINE. SHE IS NOTED WITH UPPER ARM BRUISING FORM IV SITES AND HEPARIN SHOTS. PT DENIES ANY PAIN AND IS NOTED WITH SOB OF BREATH WITH CONVERSATION. SHE HAS ASPIRATION PRECAUTIONS IN PLACE AND HAS A YANKAUER FOR SELF SUCTION NEEDED. ALL FALLS AND ASPIRATION PRECAUTIONS IN PLACE.
[2021-04-28] MEDS: AMINO ACIDS 8.5% IV SCH (20:00)
[2021-04-28] MEDS: INSULIN REGULAR IV SCH (20:00)
[2021-04-28] MEDS: HUMAN IV SCH (20:00)
[2021-04-28] MEDS: DEXTROSE 50% IV SCH (20:00)
--- NOTE | 2021-04-28 20:00 | NUR ---
PT SITTING UP IN ED V/S FOLLOWS: T 98.7 P 78 R 23 B/P 141/77 02 94% ON 15 LITERS HI FLOW N/C WITH FI02 AT 30%. ALL ORDERED PRECAUTIONS IN PLACE.
--- NOTE | 2021-04-28 20:30 | NUR ---
TPN HUNG AND RUNNING AT 50MLS/HR. FINGERSTICK TAKEN 118. PT DECLINED HEPARIN SQ SHOT. PT LUNG SOUNDS DIMINISHED SHE REMAINS ON 15 LITERS HI FLOW AT 30% FI 02. PT DENIES ANY PAIN AT THIS TIME. ALL ORDERED PRECAUTIONS IN PLACE.
--- NOTE | 2021-04-28 23:30 | NUR ---
PT RECEIVING NEB TREATMENT AT BEDSIDE. FINGERSTICK IS 149 NO HUMALOG COVERAGE NEEDED. TPN CONTINUES ORDERED AND NORMAL SALINE RUNNING TO KVO. V/S FOLLOWS: T 99.2 P 96 R 24 B/P 137/76 02 90%. COOLING MEASURES IN PLACE. PT ABLE TO SELF TURN IN BED. PT SAID THAT SHE WANTS TO SLEEP AT THIS TIME AND SHE HAS NO FURTHER REQUEST. ALL ORDERED PRECAUTIONS IN PLACE.
[2021-04-29] VITALS: BP 137/76
[2021-04-29] MEDS: ALBUTEROL SULFATE/IPRATROPIU 3 ML SOL IH SCH ×6 (00:37→19:00)
[2021-04-29] MEDS: BLOOD GLUCOSE MONITORING 1 DEV DEV MC SCH ×3 (00:49→12:05)
--- NOTE | 2021-04-29 03:09 | NUR ---
ROUNDS DONE, PT IN BED ASLEEP NO S/S OF PAIN OR DISTRESS NOTED. SHE CONTINUES ON THE TPN AT 50 MLS/HR WELL N/S TO KVO. PT HOB ELEVATED 45% AND SHE CONTINUES ON 15 LITERS VIA HI FLOW N/C. ALL ORDERED PRECAUTIONS IN PLACE.
[2021-04-29 04:00] VITALS: BP 133/73
--- NOTE | 2021-04-29 06:00 | NUR ---
PT IN BED ASLEEP, SHE CONTINUES ON 15 LITERS O2 VIA HIGH FLOW N/C. LAKE CATHETER DRAINED 600MLS OF LAUREL URINE. PT FINGERSTICK IS 108, TPN AND N/S CONTINUES ORDERED VIA LEFT UPPER PICC LINE. ALL ORDERED PRECAUTIONS IN PLACE.
[2021-04-29 06:33] LABS: ALBUMIN 2.7 g/dL (3.4-5.0); CARBON DIOXIDE 39.1 mmol/L (21-32); CREATININE 0.4 mg/dL (0.6-1.3); POTASSIUM 4.1 mmol/L (3.5-5.1); TOTAL BILIRUBIN 0.6 mg/dL (0.0-1.0)
[2021-04-29 06:34] LABS: MAGNESIUM 2.3 mg/dL (1.8-2.4); PHOSPHORUS 2.7 mg/dL (2.5-4.9)
[2021-04-29 08:19] VITALS: BP 136/66
[2021-04-29] MEDS: ASPIRIN 81 MG TAB.CHEW PO SCH (08:50)
[2021-04-29] MEDS: amLODIPine 5 MG TAB PO SCH (08:50)
[2021-04-29] MEDS: FUROSEMIDE 40 MG/4 ML VIAL IVP SCH (08:50)
[2021-04-29] MEDS: methylPREDNISolone SS 40 MG/ML VIAL IVP SCH (08:50)
[2021-04-29] MEDS: PANTOPRAZOLE 40 MG INJ VIAL IVP SCH (08:50)
[2021-04-29] MEDS: NICOTINE TRANSD SYS 14 MG/24 HR PATCH TD SCH (08:51)
[2021-04-29] MEDS: HYDROmorphone 1 MG/ML AMP IVP PRN ×2 (08:52→21:06)
--- NOTE | 2021-04-29 09:56 | NUR ---
PT IS AOx4, VSS, RECEIVING 15L HIFLOW NC 30%FIO2 SATTING AT 95. PT RECEIVED AND TOLERATED AM MEDICATIONS. PT GIVEN DILAUDID IN AM DUE TO ABDOMEN PAIN. PT AWARE OF POC, QUESTIONS/CONCERNS ANSWERED AND SAFETY MEASURES IN PLACE.
[2021-04-29] MEDS ORDERED: PRO40I IVP (11:48)
[2021-04-29] MEDS ORDERED: DIL1I IVP (11:48)
[2021-04-29] MEDS ORDERED: LAS20I IVP (11:48)
[2021-04-29] MEDS ORDERED: DOCU-299 PO (11:48)
[2021-04-29 12:00] VITALS: BP 130/72
[2021-04-29] MEDS: LEVOFLOXACIN 750 MG/D5W PREMIX 150 ML IV SCH (15:30)
--- NOTE | 2021-04-29 15:35 | NUR ---
PT TPN DCED PER PRIMARY MD. CM AWARE. PT AWARE OF POC.
[2021-04-29 16:00] VITALS: BP 126/76
[2021-04-29] MEDS: ONDANSETRON 4 MG/2 ML VIAL IM/IVP PRN ×2 (16:48→21:06)
--- NOTE | 2021-04-29 18:56 | NUR ---
PT IN STABLE CONDITION, VSS. PT AWARE OF POC, TOLERATING DIET. SAFETY MEASURES IN PLACE. WILL ENDORSE TO NUCLEAR TECHNICIAN.
--- NOTE | 2021-04-29 19:10 | NUR ---
ENDORSED CARE TO FIELD ARTILLERY CREWMEMBER RN.
[2021-04-29 20:00] VITALS: BP 125/67
[2021-04-30] VITALS: BP 112/58
[2021-04-30] MEDS: ONDANSETRON 4 MG/2 ML VIAL IM/IVP PRN ×2 (02:44→10:24)
[2021-04-30] MEDS: HYDROmorphone 1 MG/ML AMP IVP PRN ×2 (02:45→10:24)
[2021-04-30 04:00] VITALS: BP 103/58
[2021-04-30] MEDS: ALBUTEROL SULFATE/IPRATROPIU 3 ML SOL IH SCH ×4 (04:33→15:26)
[2021-04-30 07:18] LABS: ANION GAP 4.8 (8-16); CARBON DIOXIDE 37.3 mmol/L (21-32); CREATININE 0.4 mg/dL (0.6-1.3); POTASSIUM 4.1 mmol/L (3.5-5.1)
--- NOTE | 2021-04-30 07:30 | NUR ---
RECEIVED BEDSIDE REPORT FROM NIGHT RN FOR CONTINUITY OF CARE. PT IN THE BED, AWAKE, PERRLA, AOX4, ABLE TO MAKE NEEDS KNOWN. ON HI FLOW NC AT 15L, FIO2 30%. WITH EPISODES OF PRODUCTIVE COUGH AND CHEST PAIN WHEN COUGHING. WITH MIGUEL PICC RUNNING NS TKO @ 5 ML/HR, TPN AT 50 ML/HR. LAKE CATH IN PLACE DRAINING TO GRAVITY. INITIAL ASSESSMENT DONE, ALL SAFETY PRECAUTION MET, CALL LIGHT WITHIN REACH, WILL CONTINUE TO CLOSELY MONITOR.
[2021-04-30 07:50] VITALS: BP 127/70
--- NOTE | 2021-04-30 07:50 | NUR ---
RECEIVED ON A VAPOTHERM HIGH FLOW NASAL CANNULA WITH COMPRESSOR ON PLUGGED INTO RED OUTLET TOLERATING WELL WITHOUT ADVERSE REACTIONS NOTED ENCOURAGED PATIENT INTERMITTENT DEEP BREATH AND COUGH PATIENT WITH NON PRODUCTIVE COUGH EVEN WITH OROPHARYNGEAL SUCTIONING SATURATION 91% ON FIO2 OF 30% POST HHN THERAPY TITRATED FIO2 TO 28%; FLOW TO 14 LPM TINO/RN NOTIFIED
[2021-04-30 08:00] VITALS: BP 122/70
[2021-04-30] MEDS: ASPIRIN 81 MG TAB.CHEW PO SCH (08:27)
[2021-04-30] MEDS: amLODIPine 5 MG TAB PO SCH (08:27)
[2021-04-30] MEDS: PANTOPRAZOLE 40 MG INJ VIAL IVP SCH (08:27)
[2021-04-30] MEDS: FUROSEMIDE 40 MG/4 ML VIAL IVP SCH (08:27)
[2021-04-30] MEDS: methylPREDNISolone SS 40 MG/ML VIAL IVP SCH (08:27)
[2021-04-30 08:50] LABS: HEMATOCRIT 33.3 % (36-48); HEMOGLOBIN 11.2 g/dL (12.0-16.0); MEAN CORPUSCULAR HEMOGLOBIN 31 pg (27-31); MEAN CORPUSCULAR HGB CONC 34 g/dL (33-37); MEAN CORPUSCULAR VOLUME 91.1 fL (80-94); PLATELET COUNT (AUTO) 175 K/uL (140-450); RED BLOOD CELL COUNT(AUTO) 3.66 MIL/uL (4.20-5.40); RED CELL DISTRIBUTION WIDTH 13.3 % (11.6-13.7)
--- NOTE | 2021-04-30 08:50 | NUR ---
DUE MEDS GIVEN TOLERATED WELL
[2021-04-30 09:07] LABS: LYMPHOCYTES % (MANUAL) 3 % (20-46); MONOCYTES % (MANUAL) 3 % (5-12)
[2021-04-30 09:34] LABS: MAGNESIUM 2.3 mg/dL (1.8-2.4); PHOSPHORUS 2.7 mg/dL (2.5-4.9)
--- NOTE | 2021-04-30 10:30 | NUR ---
ZOFRAN GIVEN FOR NAUSEA, DILAUDID 0.25MG IVP GIVEN FOR PAIN
[2021-04-30 12:00] VITALS: BP 134/71
--- NOTE | 2021-04-30 12:29 | NUR ---
LAKE CATH REMOVED ORDERED. PT'S SON AT BEDSIDE, UPDATED ON PLAN OF CARE
--- NOTE | 2021-04-30 14:15 | NUR ---
REPORT GIVEN TO DIVINE LARRY IN [facility]
--- NOTE | 2021-04-30 16:40 | NUR ---
PICKED UP BY [facility] TO [facility] IN [place]
== END 2021-04-30 16:45 | DRG 208 ==
LOC: MED 07:42 → MMU 09:04 → MTU 09:43 → MIC 04-23 00:24 → MTU 04-28 17:45
PROVIDERS: ADMIT Family Medicine; ATTEND Family Medicine
PROC: 5A0935A Assistance with Respiratory Ventilation, Less than 24 Consecutive Hours, High Flow/Velocity Cannula (ICD-10-PCS; 2021-04-21)
PROC: 5A09357 Assistance with Respiratory Ventilation, Less than 24 Consecutive Hours, Continuous Positive Airway Pressure (ICD-10-PCS; 2021-04-21)
PROC: 5A1935Z Respiratory Ventilation, Less than 24 Consecutive Hours (ICD-10-PCS; principal; 2021-04-22)
PROC: 5A12012 Performance of Cardiac Output, Single, Manual (ICD-10-PCS; 2021-04-22)
PROC: 5A0935A Assistance with Respiratory Ventilation, Less than 24 Consecutive Hours, High Flow/Velocity Cannula (ICD-10-PCS; 2021-04-22)
PROC: 0BH17EZ Insertion of Endotracheal Airway into Trachea, Via Natural or Artificial Opening (ICD-10-PCS; 2021-04-22)
PROC: 5A09357 Assistance with Respiratory Ventilation, Less than 24 Consecutive Hours, Continuous Positive Airway Pressure (ICD-10-PCS; 2021-04-24)
PROC: 5A0935A Assistance with Respiratory Ventilation, Less than 24 Consecutive Hours, High Flow/Velocity Cannula (ICD-10-PCS; 2021-04-25)
PROC: 5A09357 Assistance with Respiratory Ventilation, Less than 24 Consecutive Hours, Continuous Positive Airway Pressure (ICD-10-PCS; 2021-04-25)
PROC: 5A09457 Assistance with Respiratory Ventilation, 24-96 Consecutive Hours, Continuous Positive Airway Pressure (ICD-10-PCS; 2021-04-27)
PROC: 5A0935A Assistance with Respiratory Ventilation, Less than 24 Consecutive Hours, High Flow/Velocity Cannula (ICD-10-PCS; 2021-04-28)
PROC: 05HY33Z Insertion of Infusion Device into Upper Vein, Percutaneous Approach (ICD-10-PCS; 2021-04-28)
DX: J96.21 Acute and chronic respiratory failure with hypoxia (principal); I46.9 Cardiac arrest, cause unspecified; I21.A1 Myocardial infarction type 2; J44.1 Chronic obstructive pulmonary disease with (acute) exacerbation; E44.0 Moderate protein-calorie malnutrition; Z68.1 Body mass index [BMI] 19.9 or less, adult; J96.22 Acute and chronic respiratory failure with hypercapnia; I10 Essential (primary) hypertension; I25.10 Atherosclerotic heart disease of native coronary artery without angina pectoris; J43.9 Emphysema, unspecified; E87.5 Hyperkalemia; Z20.822 Contact with and (suspected) exposure to COVID-19; D72.829 Elevated white blood cell count, unspecified; F17.210 Nicotine dependence, cigarettes, uncomplicated; Z99.81 Dependence on supplemental oxygen; Z90.710 Acquired absence of both cervix and uterus; Z88.5 Allergy status to narcotic agent; Z88.0 Allergy status to penicillin; Z88.8 Allergy status to other drugs, medicaments and biological substances; Z79.899 Other long term (current) drug therapy
CPT/HCPCS: 36415; 36600; 71045; 71275; 80048; 80053; 82040; 82150; 82803; 82948; 83036; 83605; 83690; 83735; 83880; 84100; 84436; 84439; 84443; 84479; 84484; 85025; 85610; 85730; 87040; 87070; 87081; 87086; 87205; 92610; 92950; 93005; 93880; 94002; 94003; 94640; 94660; 96361; 96374; 99291; C9113; J1170; J1450; J1644; J1815; J1940; J1956; J2405; J2920; J3010; J3480; J3490; J7060; J7644; Q0092; Q9967